=== PATIENT | male | born 1945 | race Caucasian/White ===

== ENCOUNTER → 2017-03-18 | Outpatient (CLI) | payer OTHER ==
[~2017-03-18] MED LIST: ASPEC81 PO; ATEN50TA8 PO; ATOR-22 PO; DYZ PO; OMEG10007 PO
[2017-03-18 17:32] LABS: BASO % 0.4 %; BASO ABS # 0.03 K/uL (0-0.2); COMPLETE YES; EOS % 1.9 %; HEMATOCRIT 46.1 % (42-52); IG% 0.1 %; LYMPH % 25.2 %; LYMPH ABS # 1.71 K/uL (1.2-3.4); MEAN CELL VOLUME 91.1 fL (80-100); MEAN CORPUSCULAR HEMOGLOBIN 31.6 pg (25-34); MEAN CORPUSCULAR HGB CONC 34.7 g/dl (32-36); MONO % 7.5 %; NEUT % 64.9 %; PLATELET COUNT 136 K/uL (130-400); RED BLOOD COUNT 5.06 M/uL (4.7-6.1); WHITE BLOOD COUNT 6.79 K/uL (4.8-10.8)
[2017-03-18 17:55] LABS: ALB/GLOB RATIO 1.2 (0.9-2); ALKALINE PHOSPHATASE 89 U/L (45-117); ALT/SGPT 26 U/L (12-78); AST/SGOT 16 U/L (15-37); BLOOD UREA NITROGEN 13 mg/dl (7-18); BUN/CREATININE RATIO 12.7 (10-20); CALCIUM 8.4 mg/dl (8.5-10.1); CARBON DIOXIDE 28 mmol/L (21-32); CHLORIDE 103 mmol/L (98-107); GLUCOSE 104 mg/dl (70-99); HDL CHOLESTEROL 46 mg/dl; POTASSIUM 3.3 mmol/L (3.5-5.1); SODIUM 139 mmol/L (136-145)
[2017-03-18 18:01] LABS: CHOLESTEROL 121 mg/dl (0-200); CHOLESTEROL/HDL RATIO 2.6; LDL CHOLESTEROL CALCULATED 59 mg/dl; PROSTATE SPECIFIC ANTIGEN 0.502 ng/ml (0.000-4.000); TRIGLYCERIDES 82 mg/dl (0-150); VERY LOW DENSITY LIPOPROT CALC 16 mg/dl
[2017-03-19 06:32] LABS: ESTIMATED AVERAGE GLUCOSE 114 mg/dl; HA1C FLAG Normal (Normal)
--- NOTE | 2017-03-24 11:35 | CODING QUERY MEDICAL NECESSITY ---
SUPPORTING DIAGNOSIS NEEDED A supporting diagnosis is required for the test/procedure performed on this patient in order for us to be reimbursed by the patient's insurance. Please provide a supporting diagnosis for the following test/procedure listed below next to the test name along with your signature. *If there is no additional diagnosis for this patient that would support the following test/procedure please document that below next to the test/procedure. Test(s)/Procedure(s) that require a supporting diagnosis: * PSA DIAGNOSIS: Provider Signature: Date: Thank you Jessy Ignacio [employer] Information Management Once completed, please kindly fax back to [phone] For questions please call [phone]
== END | disposition home or self-care (01) ==
LOC: C.LABBFT 11:32
PROVIDERS: ATTEND Internal Medicine
DX: R73.01 Impaired fasting glucose (principal); N40.0 Benign prostatic hyperplasia without lower urinary tract symptoms

== ENCOUNTER 2020-02-28 07:02 | Inpatient (IN) ==
--- NOTE | 2020-02-23 11:36 | Anesthesiology Consultation ---
Date of Service February 23, 2020 Assessment & Plan (1) Encounter for pre-operative examination: Labs (CBC, BMP, coags) to be done AM DOS per surgeon. Cardiology Clearance 02/16/20 = "Based on his functional status without limiting cardiopulmonary symptoms, preserved LV systolic function, and his Negative Stress Echocardiogram 12/19/2019 -- patient is an acceptable surgical risk to proceed with endovascular repair of AAA as planned. Patient was advised to take his usual dose of Atenolol 50 mg the morning of this procedure with sips of water. There is no need for further cardiac workup at this time." COVID Status: As of nurse assessment, 02/22 patient denies travel to endemic area, known exposure/sick contacts, symptoms, or testing for coronavirus. Chart Review Chart Review: Acceptable Risk for Surgery (pending pre op labs to be done AM DOS) and Patient NOT seen in Pre Admission Testing History Surgery Operation Date: 02/28/20 10:00 Proposed Procedures p Percutaneous Endovascular Aneurysm Repair - Nathan Saba MD Height/Weight Height: 5 ft 9 in Weight: 104.326 kg Allergies Allergy/AdvReac Type Severity Reaction Status Date / Time diflunisal Allergy Intermediate "CRAWL OUT Verified 02/21/20 09:23 OF SKIN" Medications Home Medications Medication Instructions Recorded Confirmed Last Taken omega-3 fatty acids 1,000 mg 1,000 mg PO QAM 06/29/19 02/23/20 Unknown capsule aspirin 81 mg PO QAM 12/12/19 02/23/20 Unknown atenolol 50 mg PO QAM 12/12/19 02/23/20 Unknown atorvastatin 30 mg PO QAM 12/12/19 02/23/20 Unknown triamterene-hydrochlorothiazid 1 cap PO QAM 12/12/19 02/23/20 Unknown Past Medical History Medical History Adenomatous polyp of colon (Inactive) Aortic aneurysm (Chronic) Chronic osteoarthritis (Chronic) Coronary atherosclerosis of [place] coronary vessel (Chronic) 100% occluded proximal RCA. Most recent echo 2013 showed EF 45-50%, dyskinetic inferior base, akinetic posterior wall, and mildly hypokinetic lateral wall. Medically managed by PCP on BB, statin and ASA. HTN (hypertension) (Chronic) Hyperlipidemia Spinal stenosis of lumbar region (Chronic) s/p decompression and fusion x 3 Past Family History Family History Mother Coronary heart disease Myocardial infarction Osteoarthritis Father Coronary heart disease Myocardial infarction Aunt Coronary heart disease Myocardial infarction Osteoarthritis Uncle Coronary heart disease Myocardial infarction Grandfather (Paternal) Myocardial infarction Other Colonic polyp Diabetes Heart disease Hypertension Stroke Denies family history of Rheumatoid arthritis Sudden SIDS (sudden syndrome) Ovarian cancer Prostate cancer Deep vein thrombosis Osteoporosis Dyslipidemia Cerebral aneurysm Alzheimer disease Bipolar disorder Clotting disorder Crohn's disease Dementia Depression Kidney disease Breast cancer Schizophrenia Congenital kidney disease Gestational diabetes Lung cancer COPD (chronic obstructive pulmonary disease) Colorectal cancer Pulmonary embolism Lung disease Cancer Ulcerative colitis Asthma Cystic kidney disease Past Surgical History Surgical History Fusion of spine CERVICAL AND LUMBAR FUSION (TOTAL 3 BACK SURGERIES) History of cardiac cath Indicated after + stress test in 2003. 100% occlusion of RCA with good collateral flow from L to R collaterals; 30% proximal and mid LAD stenosis, no significant disease in Cx. History of cataract surgery RT/LEFT History of colonoscopy History of tooth extraction Hx of tonsillectomy Social History Smoking Status: Former smoker tobacco type: cigarettes Do You Dip or Chew Tobacco: No Smoking End Date: 6 MONTHS AGO Hx Alcohol Use: Yes Alcohol type: beer, wine and hard liquor alcohol intake frequency: a few times a month Hx Substance Use: No substance use type: does not use Testing Stress Test Date: 12/19/19 Type: exercise Negative stress echocardiogram for ischemia by echo and EKG at 84% MPHR. Average exercise tolerance for age and gender, 90% of predicted, achieving 6.5 METS. The basal anterolateral, basal mid inferolateral basal inferior and basal inferoseptal mckeon remain akinetic with exercise consistent with scar. 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 No chest pain. No significant arrhythmia. Ventricular bigeminy and immediate recovery resolving around 2 minutes into recovery. Rest echo findings: EF 50%. Normal LV size. 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 Preserved LV systolic function. Biplane ejection fraction is 50 to 55%. Mild LVH. Other Testing Electrocardiogram Date: 12/14/19 Findings: + SB @ (47bpm with 1st degree AV block) NSICVD. Posibble inferior infarct (cited on or before 05/26/04). No significant change from EKG 02/13/16. Chest X-Ray Date: 12/14/19 Findings: + NAD
--- NOTE | 2020-02-27 13:50 | History & Physical Report ---
Date of Service February 27, 2020 Assessment & Plan (1) Aortic aneurysm: Patient for endovascular repair of his abdominal aortic aneurysm. I have discussed the risks options and benefits of the procedure with the patient. The patient understands the risks options and benefits and agrees to the procedure. Aortic location: abdominal aorta Presence of rupture: without rupture Qualified Code(s): I71.4 - Abdominal aortic aneurysm, without rupture History of Present Illness Chief Complaint: Abdominal aortic aneurysm Primary Care Provider: Glen Jones MD Mr. Ryan Nelson has a history of an abdominal aortic aneurysm, which we have been following with annual aortoiliac ultrasounds. As he reports to clinic today, he reports that he continues to be of good health. He denies any abdominal pain, significant back pain or symptoms of lower extremity claudication or cerebrovascular insufficiency. He was last seen in October of 2018. At that point in time, his aneurysm measured 4.7 cm in diameter. He reports that since his last visitation, he has no new medical or surgical diagnoses and no new medications. He had an aortoiliac ultrasound performed prior to his presentation to clinic today, which does demonstrate some growth in his aneurysm and is now measuring 4.9 x 5 cm and is being described as infrarenal and fusiform. 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 Allergies Allergy/AdvReac Type Severity Reaction Status Date / Time diflunisal Allergy Intermediate "CRAWL OUT Verified 02/21/20 09:23 OF SKIN" Home Medications Home Medications Medication Instructions Recorded Confirmed Type omega-3 fatty acids 1,000 mg 1,000 mg PO QAM 06/29/19 02/23/20 History capsule aspirin 81 mg PO QAM 12/12/19 02/23/20 History atenolol 50 mg PO QAM 12/12/19 02/23/20 History atorvastatin 30 mg PO QAM 12/12/19 02/23/20 History triamterene-hydrochlorothiazid 1 cap PO QAM 12/12/19 02/23/20 History Past Med/Surg History Medical History Adenomatous polyp of colon (Inactive) Aortic aneurysm (Chronic) Chronic osteoarthritis (Chronic) Coronary atherosclerosis of [place] coronary vessel (Chronic) 100% occluded proximal RCA. Most recent echo 2013 showed EF 45-50%, dyskinetic inferior base, akinetic posterior wall, and mildly hypokinetic lateral wall. Medically managed by PCP on BB, statin and ASA. HTN (hypertension) (Chronic) Hyperlipidemia Spinal stenosis of lumbar region (Chronic) s/p decompression and fusion x 3 Surgical History Fusion of spine CERVICAL AND LUMBAR FUSION (TOTAL 3 BACK SURGERIES) History of cardiac cath Indicated after + stress test in 2003. 100% occlusion of RCA with good collateral flow from L to R collaterals; 30% proximal and mid LAD stenosis, no significant disease in Cx. History of cataract surgery RT/LEFT History of colonoscopy History of tooth extraction Hx of tonsillectomy Family History Mother Coronary heart disease Myocardial infarction Osteoarthritis Father Coronary heart disease Myocardial infarction Aunt Coronary heart disease Myocardial infarction Osteoarthritis Uncle Coronary heart disease Myocardial infarction Grandfather (Paternal) Myocardial infarction Other Colonic polyp Diabetes Heart disease Hypertension Stroke Denies family history of Rheumatoid arthritis Sudden SIDS (sudden syndrome) Ovarian cancer Prostate cancer Deep vein thrombosis Osteoporosis Dyslipidemia Cerebral aneurysm Alzheimer disease Bipolar disorder Clotting disorder Crohn's disease Dementia Depression Kidney disease Breast cancer Schizophrenia Congenital kidney disease Gestational diabetes Lung cancer COPD (chronic obstructive pulmonary disease) Colorectal cancer Pulmonary embolism Lung disease Cancer Ulcerative colitis Asthma Cystic kidney disease Social History Preferred Language: [place] Communication Ability: Effective Visual Impairment: Partially Limited Hearing Ability: Normal Marketing Manager Health Communications Required: No Beliefs That Will Affect Care: None marital status: Current Living Situation: Spouse current occupational status: retired 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 Feels Safe at Home: Yes Safety Concerns: Feels Safe At This Time Smoking Status: Former smoker Tobacco Type: cigarettes ; Age Started Using Tobacco: 14 ; packs per day: 2 ; Do You Dip or Chew Tobacco: No ; Smoking End Date: 6 MONTHS AGO ; Second Hand Exposure: No ; Tobacco Cessation Education Requested by Patient: No Hx Alcohol Use: Yes Alcohol type: beer, wine and hard liquor Alcohol Intake Frequency: Rarely Hx Substance Use: No Childhood Exposure to Second-Hand Smoke: Yes caffeine: Yes Dental Care, Regularly: No Physical Activity Frequency: 3-4 Times per Week Seatbelt Use: always Sunscreen Use: No Review of Systems All systems reviewed & are unremarkable except as noted in HPI & below Physical Exam Physical Exam: On physical exam he is a well-appearing 74-year-old gentleman, who is in no acute distress. He is well-nourished. His vitals are as follows: He is saturating 97% on room air. His heart rate is 55 and has regular rate and rhythm by radial palpation. His blood pressure is 116/70 in his right upper extremity and 110/60 in his left upper extremity. He is able to ambulate to and from the examination room without any gait disturbance. His head is normocephalic and atraumatic. Extraocular eye movements are intact. His sclerae are anicteric. Mucous membranes are moist. He has no carotid bruits on auscultation. He has a heart that is of regular rate and rhythm without any murmurs, rubs or gallops appreciated on auscultation as well. His lungs are clear to auscultation bilaterally. His abdomen is soft, nontender, nondistended, without any obvious abdominal surgical scars. He has palpable 2+ DP and PT pulses bilaterally in his lower extremities without any open sores or wounds to the bilateral feet and no evidence of a distal arterial insufficiency. Neurologically, he is alert and oriented, without any focal deficits appreciated grossly on examination.
[~2020-02-28 07:02] MED LIST changes: -ASPEC81 PO; -ATEN50TA8 PO; -ATOR-22 PO; +CEFAZOLIN 2000MG 2,000 MG/15 ML SYR IV SCH; -DYZ PO; +LIDOCAINE HCL 1% 20 ML VIAL ONE; +MIDAZOLAM HCL 1 MG/ML 2ML VIAL ONE; -OMEG10007 PO; +SODIUM CHLORIDE 0.9% 1000ML 1,000 ML IV SCH; +fentaNYL citrate 100 MCG/2 ML VIAL ONE
[2020-02-28] MEDS ORDERED: LIDOCAINE 2% JELLY 5 ML TUBE ONE (07:09)
[2020-02-28] MEDS ORDERED: BUPIVACAINE 0.5 % 5 MG/1 ML MPF 30ML VIAL ONE (07:16)
[2020-02-28] MEDS ORDERED: LIDOCAINE/EPINEPHRINE 1% INJ 50 ML VIAL ONE (07:16)
--- NOTE | 2020-02-28 07:23 | History & Physical Bridge Note ---
Date of Service February 28, 2020 History & Physical Bridge Note I explained to the patient this is a nonemergency procedure that although medically indicated could be delayed to another date. There is a risk of becoming infected with the COVID-19 virus after having the surgical procedure done at this time. I explained that performing the procedure at this time may lead to a higher chance of complications and if they are infected with the COVID-19 virus without thus knowing it or if they become infected with COVID-19 during or after the procedure. COVID-19 infections can result in any of the following: Positive COVID test results, the need for quarantine/self-isolation, additional test interventions, hospitalization that may require medical therapy (including but not limited to intensive care unit treatment, the need for mechanical ventilation, short and long-term respiratory failure, management of blood clots and bleeding disorders, dialysis for renal failure, the need for additional surgery) and . If you may become COVID-19 positive, you may potentially transmit the virus to your personal contacts who may develop symptoms leading to the need for intensive medical therapy and possibly . I explained that knowledge about COVID-19 and is associated risk continues to evolve, and there may be additional risks not outlined above which are later discovered. The patient understands the above risks and agrees to go ahead with the planned procedure at this time.. I have examined the patient, reviewed the History & Physical and in the interval since the performance of the History & Physical I have noted the following changes of clinical significance: no changes noted
[2020-02-28 07:43] LABS: Basophils # (auto) 0.04 K/uL (0-0.2); Basophils % (auto) 0.6 %; Eosinophils # (auto) 0.19 K/uL (0-0.5); Eosinophils % (auto) 2.7 %; Hematocrit (blood only) 45.5 % (42-52); Hemoglobin 15.6 g/dL (14.0-18.0); Immature Granulocytes # (auto) 0.02 K/uL (0.00-0.02); Immature Granulocytes % (auto) 0.3 %; Lymphocytes # (auto) 1.71 K/uL (1.2-3.4); Lymphocytes % (auto) 24.6 %; Mean Corpuscular Hemoglobin 31.2 pg (25-34); Mean Platelet Volume 10.3 fL (7.4-10.4); Monocytes # (auto) 0.65 K/uL (0.11-0.59); Monocytes % (auto) 9.4 %; Neutrophils # (auto) 4.33 K/uL (1.4-6.5); Neutrophils % (auto) 62.4 %; Platelet Count 127 K/uL (130-400); RDW Coefficient of Variation 13.7 % (11.5-14.5); RDW Standard Deviation 45.2 fL (36.4-46.3); White Blood Count 6.94 K/uL (4.8-10.8)
[2020-02-28 07:56] LABS: Partial Thromboplastin Ratio 1.1; Partial Thromboplastin Time 30.9 Seconds (21.0-31.0); Prothrombin Time 10.9 Seconds (9.0-12.0)
[2020-02-28 07:58] LABS: Calcium 9.1 mg/dl (8.5-10.1); Creatinine Clr Calc Pharmacy 74.5 ml/min; Mean Corpuscular Hgb Conc 34.3 g/dL (32-36); Potassium 3.3 mmol/L (3.5-5.1)
[2020-02-28] MEDS ORDERED: ePHEDrine sulfate 50 MG/ML AMP ONE (09:06)
[2020-02-28] MEDS ORDERED: LARYING-O-JET KIT (LTA) ONE (09:06)
[2020-02-28] MEDS ORDERED: ONDANSETRON INJ 2 MG/ML 2 ML VIAL ONE (09:06)
[2020-02-28] MEDS ORDERED: HEPARIN SOD (PORCINE) 1000 UNIT/ML 10 ML VIAL ONE (09:06)
[2020-02-28] MEDS ORDERED: LABETALOL HCL IV 5 MG/ML 20ML IV ONE (09:06)
[2020-02-28] MEDS ORDERED: PROPOFOL IV EMULSION 10 MG/ML 20 ML VIAL IV ONE (09:06)
[2020-02-28] MEDS ORDERED: LIDOCAINE HCL 2% 2 ML VIAL/AMP(20MG/ML) INFIL ONE (09:06)
[2020-02-28] MEDS ORDERED: DEXAMETHASONE SOD INJ 4 MG/ML VIAL ONE (09:06)
[2020-02-28] MEDS ORDERED: NEOSTIGMINE METHYLSULFATE 5 MG/5 ML SYR ONE (09:06)
[2020-02-28] MEDS ORDERED: GLYCOPYRROLATE 0.2 MG/ML VIAL ONE (09:06)
[2020-02-28] MEDS ORDERED: ePHEDrine sulfate 50 MG/ML SYR ONE (09:06)
[2020-02-28] MEDS ORDERED: PHENYLEPHRINE HCL 10 MG/ML VIAL ONE (09:06)
[2020-02-28] MEDS ORDERED: CISATRACURIUM BESYLATE IV SOLN 2 MG/ML 10 ML VIAL IV ONE (09:06)
[2020-02-28] MEDS ORDERED: OXYCODONE/ACETAMINOPHEN 5mg/325mg TAB PO PRN (10:36)
[2020-02-28] MEDS ORDERED: VISIPAQUE IV PRN (10:36)
--- NOTE | 2020-02-28 10:43 | Post Operative Brief Note ---
Immediate Post Op Note v1 Date of Surgery February 28, 2020 Pre & Post Diagnosis Operation Date: 02/28/20 07:30 Pre-Op Diagnosis: Abdominal Aortic Aneurysm Post-Op Diagnosis: Abdominal Aortic Aneurysm I identified the patient and participated in the time-out.: Yes Procedure Operation Date: 02/28/20 07:30 Actual Procedures p Percutaneous Endovascular Aortic Aneurysm Repair, Bilateral Cannulation of the Aorta; Mechanical Closure of Bilateral Femoral Arteries(Bilateral) - Nathan Saba MD Surgeon Nathan Saba MD Architecture Professor Sylvia,PAC Estimated Blood Loss 220 Findings Consistent with Post-Op Diagnosis Drains Ponce Catheter Anesthesia Type General Complications none Disposition Accompanied Patient To Recovery: No Disposition: Recovery Room
--- NOTE | 2020-02-28 10:56 | Procedure Note ---
Angiogram Post Procedure Fluoroscopy Time (minutes): 12.9 Radiation (mGy): 997 Contrast: 190 Post Operative Report Pre & Post Diagnosis Operation Date: 02/28/20 07:30 Pre-Op Diagnosis: Abdominal Aortic Aneurysm Post-Op Diagnosis: Abdominal Aortic Aneurysm I identified the patient and participated in the time-out.: Yes Procedure Operation Date: 02/28/20 07:30 Actual Procedures p Percutaneous Endovascular Aortic Aneurysm Repair, Bilateral Cannulation of the Aorta; Mechanical Closure of Bilateral Femoral Arteries(Bilateral) - Nathan Saba MD Surgeon Nathan Saba MD Accounts Receivable Processor Sylvia,PAC Estimated Blood Loss 220 Findings Consistent with Post-Op Diagnosis Specimens none Anesthesia Type General Complications none Disposition Accompanied Patient To Recovery: No Disposition: Recovery Room Indications This is a 74-year-old male who had abdominal aortic aneurysm which is been followed for some time. It has grown to 5 cm in a short period of time. Repair was recommended. I have discussed the risks options and benefits of the procedure with the patient. The patient understands the risks options and benefits and agrees to the procedure. Description of Procedure The patient was taken to the operating placed supine position. After general anesthesia was accomplished 20-minute wait was undertaken. The patient was then prepped and draped in a sterile manner. A timeout was performed and the patient was appropriately identified. Percutaneous puncture was then done of the right common femoral artery and a 5 [place] sheath inserted. Hand-injection showed the puncture to be in the common femoral artery anteriorly. 2 pro glide devices were used to preclosed the right groin puncture. Once this was done a [place] sheath was inserted. Next the left common femoral artery was punctured and a 5 [place] sheath inserted. Hand-injection was performed on this side showing the puncture to be anterior in the common femoral artery. 2 Pro-glide devices were then used to preclosed the left side. Once they were placed an 8 [place] sheath was inserted. 035 glide wires were then passed up through the sheath into the suprarenal aorta. Using a Kumpe catheter these wires were then exchanged to a [place] on the right and a Beatty wire on the left. Once these were the wires were in place the 8 [place] sheath on the left side was exchanged to a 12 [place] dry seal. On the right side the puncture was dilated with a 16 [place] dilator followed by an 18 [place] dry seal. We then inserted a pigtail through the left groin suprarenal E. We inserted a 28 x 14-1/2 x 12 C3 graft to the right groin. An aortogram was performed. Renal arteries were identified. There was a small accessory renal of the right side which only supplied a very small portion of the kidney. The graft was then deployed just below the renal arteries. Another aortogram was done at this point. We decided we should move the graft just slightly to get it to slightly closer to the renal arteries. This was done without difficulty. The trunk of the graft was then reopened and another aortogram performed showing the top of the graft to be right with the renal arteries inferior border. [place] were then released. We then used an 035 Glidewire and Kumpe catheter to cannulate the gate. Once this was cannulated the pigtail was inserted. Hand-injection was performed marking the internal iliac on the left side. We decided at that time to use a 18 x 9-1/2 contralateral limb. The wire wire was reinserted and the pigtail was removed. We then placed the 12 [place] dilator back into the sheath and placed the sheath back up into the gait. The rest of the graft on the right side was deployed. The graft her leg slipped down into the aneurysm sac. This was due to the graft being pulled down with the sheath. At that point we finished the deployed the r ight limb and did a injection through the sheath on the right side. This showed the right limb to be in good position right above the right internal iliac artery. No endoleak was seen with a hand-injection from the groin. Decided to realign the graft completely. We then inserted another 28 x 14 and half by 14 C3 graft. This was brought up to the level of the renal arteries. A pigtail was reinserted to the left side. Aortography again marked renal arteries. The graft was then deployed just below the renal arteries. Another injection was performed which showed the graft to be at the inferior border of the renal arteries. The hooks were then deployed. We then inserted the guidewire through the pigtail and remove the pigtail. Using a angled Glidewire and the Kumpe catheter the contralateral gate was cannulated. Once this was cannulated again the pigtail was inserted. Hand-injection was performed marking the internal iliac artery on the left side. We then inserted the 12 [place] sheath and readvanced the sheath into the gait after a Marcelle wire was inserted through the pigtail and the pigtail was removed. The right was then deployed. We then inserted the 18 x 9 and half contralateral limb. It was in position it was deployed without difficulty. A Q 50 balloon was then inserted through the left side followed by the right side. All overlaps and attachment sites were b allooned with a Q50 balloon. Once this was done pigtail was inserted through the left groin. A completion aortogram showed no evidence of type I endoleak. There was good flow through the graft. There was a slight blush from the accessory renal on the right side. No further intervention was needed. We then reinserted a wire through the pigtail on the left and remove the pigtail. Left sheath was pulled and the pro-glide devices were securely tied. Jessica was used in the left groin and adequate hemostasis was noted. On the right side the 2 pro glides were tied. One actually snapped when it was being tied. We therefore inserted another Pro-glide over the wire and deployed it without difficulty. This 1 tied securely. Jessica was also used in this groin. Out of hemostasis was noted in both groins. Steri-Strips were applied to the puncture site as well as sterile dressings.The patient left the operation room in satisfactory condition and tolerated the procedure well. All needle and sponge counts were correct at the end of the procedure. Dorotyh Yan Pac assisted due to lack of resident availability and was necessary for positioning, draping, retraction, wound closure deep layers, subcutaneous tissue, and skin closure and was necessary for assisting with the case. I attest to the content of the Intraoperative Record and any orders documented therein. Any exceptions are noted below.
[2020-02-28] MEDS ORDERED: HYDROmorphone INJ 1 MG/ML SYRINGE IV PRN (11:04)
[2020-02-28] MEDS ORDERED: ATROPINE SULFATE 0.1 MG/ML 10ML SYR IV PRN (11:04)
[2020-02-28] MEDS ORDERED: NALOXONE HCL 0.4 MG/1 ML VIAL/CARP IV PRN (11:04)
[2020-02-28] MEDS ORDERED: PROMETHAZINE HCL 12.5 MG in SODIUM CHLORIDE 0.9% 50 ML IV PRN (11:04)
[2020-02-28] MEDS ORDERED: fentaNYL citrate 100 MCG/2 ML VIAL IV PRN (11:04)
[2020-02-28] MEDS ORDERED: ePHEDrine sulfate 50 MG/ML AMP IV PRN (11:04)
[2020-02-28] MEDS ORDERED: LABETALOL HCL IV 5 MG/ML 20ML IV PRN (11:04)
[2020-02-28] MEDS ORDERED: ONDANSETRON INJ 2 MG/ML 2 ML VIAL IV PRN (11:04)
[2020-02-28] MEDS ORDERED: FLUMAZENIL 0.1 MG/1 ML 10 ML VIAL IV PRN (11:04)
[2020-02-28 11:39] LABS: Hematocrit (blood only) 40.5 % (42-52)
--- NOTE | 2020-02-28 11:44 | Anesthesiology Progress Note ---
Date of Service February 28, 2020 Anesthesia Post Procedure Vital Signs Vital Signs: Temp Pulse Resp BP BP Pulse Ox 02/28/20 11:30 45 L 19 136/66 136/72 96 02/28/20 11:20 50 L 15 133/66 134/72 94 02/28/20 11:14 36.2 C L 48 L 16 134/72 97 Transfer of Care Handoff Completed per policy Notes Mental Status: alert / awake / arousable Patient Amnestic to Procedure: Yes Nausea / Vomiting: adequately controlled Pain: adequately controlled Airway Patency, RR, SpO2: stable & adequate BP & HR: stable & adequate Hydration State: stable & adequate Anesthetic Complications: no major complications apparent
[2020-02-28] MEDS: D5W AND 1/2NSS 1,000 ML IV SCH ×2 (12:35→20:37)
[2020-02-28] MEDS ORDERED: PNEUMOCOCCAL ADMINISTRATION CHARGE ONE (12:49)
[2020-02-28] MEDS ORDERED: PNEUMOCOCCAL POLYSACCHARIDES 25 MCG/0.5 ML VIAL/SYR IM ONE (12:49)
[2020-02-28] MEDS: CEFAZOLIN 2000MG 2,000 MG/15 ML SYR IV SCH ×2 (15:49→22:18)
[2020-02-29] MEDS: D5W AND 1/2NSS 1,000 ML IV SCH (05:11)
[2020-02-29 06:20] LABS: Basophils # (auto) 0.01 K/uL (0-0.2); Basophils % (auto) 0.1 %; Eosinophils # (auto) 0.01 K/uL (0-0.5); Eosinophils % (auto) 0.1 %; Hematocrit (blood only) 41.7 % (42-52); Hemoglobin 14.5 g/dL (14.0-18.0); Immature Granulocytes # (auto) 0.02 K/uL (0.00-0.02); Immature Granulocytes % (auto) 0.2 %; Lymphocytes # (auto) 0.99 K/uL (1.2-3.4); Mean Corpuscular Hemoglobin 31.6 pg (25-34); Mean Corpuscular Hgb Conc 34.8 g/dL (32-36); Mean Corpuscular Volume 90.8 fL (80-100); Mean Platelet Volume 10.6 fL (7.4-10.4); Monocytes # (auto) 0.78 K/uL (0.11-0.59); Monocytes % (auto) 7.1 %; Neutrophils # (auto) 9.15 K/uL (1.4-6.5); Neutrophils % (auto) 83.5 %; Platelet Count 109 K/uL (130-400); RDW Coefficient of Variation 13.2 % (11.5-14.5); RDW Standard Deviation 43.3 fL (36.4-46.3); Red Blood Count 4.59 M/uL (4.7-6.1); White Blood Count 10.96 K/uL (4.8-10.8)
[2020-02-29 06:49] LABS: BUN Creatinine Ratio 8.7 (10-20); Calcium 8.2 mg/dl (8.5-10.1); Creatinine Clr Calc Pharmacy 63.3 ml/min; Est GFR (African American) 65.6; Est GFR (Non-African American) 56.6; Potassium 3.4 mmol/L (3.5-5.1)
--- NOTE | 2020-02-29 08:02 | Surgery Progress Note ---
Date of Service February 29, 2020 Assessment & Plan (1) Aortic aneurysm: Patient POD#1 for a PEVAR of his AAA. Doing extremely well. Blood on bed not from either groin. D/c today after he voids Subjective Patient without complaint. Says there was a big blood spot on his bed this a.m. Physical Exam Constitutional: WD/WN, vitals as above Respiratory: normal respiratory effort; no respiratory distress Cardiovascular: Rate/Rhythm: regular rate and regular rhythm Gastrointestinal (Abdomen): Inspection/Auscultation: abdomen not distended Percussion/Palpation: abdomen soft; abdomen nontender and no guarding Skin: + incision (Puncture sites dry and clean both groins. No hematomas. ) Did not have any bleeding from groins. Dressing with only very small spot of old blood right over the puncture sites Results & Data Vital Signs (Past 12 Hours) Vital Signs Temp Pulse Resp BP Pulse Ox 02/29/20 03:00 36.3 C L 60 18 125/67 93 02/28/20 23:27 36.4 C L 56 L 18 130/73 94 (1) Aortic aneurysm Aortic location: abdominal aorta Presence of rupture: without rupture Jhon lified Code(s): I71.4 - Abdominal aortic aneurysm, without rupture
[2020-02-29] MEDS ORDERED: ATORVASTATIN 10 MG TAB PO SCH (09:00)
[2020-02-29] MEDS ORDERED: OMEGA-3 (PURIFIED FISH OIL) 1 GM CAP PO SCH (09:00)
[2020-02-29] MEDS ORDERED: TRIAMTERENE/HCTZ 37.5/25MG CAP PO SCH (09:00)
[2020-02-29] MEDS ORDERED: ASPIRIN 81 MG ECTAB PO SCH (09:00)
[2020-02-29] MEDS ORDERED: ATENOLOL 50 MG TABLET PO SCH (09:00)
--- NOTE | 2020-03-05 10:33 | Discharge Summary ---
Date of Service March 05, 2020 Admission HPI Per Admitting Provider Mr. Ryan Nelson has a history of an abdominal aortic aneurysm, which we have been following with annual aortoiliac ultrasounds. As he reports to clinic today, he reports that he continues to be of good health. He denies any abdominal pain, significant back pain or symptoms of lower extremity claudication or cerebrovascular insufficiency. He was last seen in October of 2018. At that point in time, his aneurysm measured 4.7 cm in diameter. He reports that since his last visitation, he has no new medical or surgical diagnoses and no new medications. He had an aortoiliac ultrasound performed prior to his presentation to clinic today, which does demonstrate some growth in his aneurysm and is now measuring 4.9 x 5 cm and is being described as infrarenal and fusiform. 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 Admission Exam Per Admitting Provider On physical exam he is a well-appearing 74-year-old gentleman, who is in no acute distress. He is well-nourished. His vitals are as follows: He is saturating 97% on room air. His heart rate is 55 and has regular rate and rhythm by radial palpation. His blood pressure is 116/70 in his right upper extremity and 110/60 in his left upper extremity. He is able to ambulate to and from the examination room without any gait disturbance. His head is normocephalic and atraumatic. Extraocular eye movements are intact. His sclerae are anicteric. Mucous membranes are moist. He has no carotid bruits on auscultation. He has a heart that is of regular rate and rhythm without any murmurs, rubs or gallops appreciated on auscultation as well. His lungs are clear to auscultation bilaterally. His abdomen is soft, nontender, nondistended , without any obvious abdominal surgical scars. He has palpable 2+ DP and PT pulses bilaterally in his lower extremities without any open sores or wounds to the bilateral feet and no evidence of a distal arterial insufficiency. Neurologically, he is alert and oriented, without any focal deficits appreciated grossly on examination. Principal Diagnosis 1. s/p PEVAR 2. AAA Discharge Exam Constitutional WD/WN, vitals as above Respiratory normal respiratory effort; no respiratory distress Cardiovascular Rate/Rhythm: regular rate and regular rhythm Gastrointestinal (Abdomen) Inspection/Auscultation: abdomen not distended Percussion/Palpation: abdomen soft; abdomen nontender and no guarding Skin + incision (Puncture sites dry and clean both groins. No hematomas. ) Discharge Data Allergies Allergy/AdvReac Type Severity Reaction Status Date / Time diflunisal Allergy Intermediate "CRAWL OUT Verified 02/28/20 07:47 OF SKIN" Procedures Performed Operation Date: 02/28/20 07:30 Actual Procedures p Percutaneous Endovascular Aortic Aneurysm Repair, Bilateral Cannulation of the Aorta; Mechanical Closure of Bilateral Femoral Arteries(Bilateral) - Nathan Saba MD Ordered Studies 02/28/20 07:12 EV AAA repair aorta only Routine Hospital Course (1) Aortic aneurysm: Patient POD#1 for a PEVAR of his AAA. Doing extremely well. No bleeding from either groin. D/c after he voids Total Time Total Time Spent Total Time Spent (In Minutes): 0 Discharge Plan Discharge Items Patient Disposition: Home - Self-Care Reason For Visit: Abdominal Aortic Aneurysm Discharge Diagnosis: Percutaneous endovascular repair of his abdominal aortic aneurysm Activity: Per Instructions section Lifting: Gradually increase as tolerated Bathing Comment: May shower Exercise/Sports: Rest today and Gradually increase as tolerated Weightbearing: Full weightbearing Non-emergency contact: Surgeon Call non-emergency contact if: you have any medication questions, your symptoms worsen, your pain is not controlled, your pain is worsening, your pain is unusual for you, your pain is concerning for you, your temperature is above 101.5, your wound has increased redness, your wound has increased drainage and your wound pain has increased Follow-up/Referrals: Glen Jones MD [Primary Care Provider] - Diet: Heart Healthy Addtl Attending Provider Instructions: SPECIAL CARE INSTRUCTIONS: Medications: * Continue to take your medications as directed. Incision/Puncture Site Care: * You will have an incision or puncture in each of your groins. Liquid glue will be used to seal your incisions/puncture site. This will lift off as the incisions/puncture sites heal. * If Liquid glue is not used, there will be small dressings covering your incisions. After you get home, you may remove the dressings and shower - allowing the warm soapy water to run over it. * Be sure to dry the sites well and keep them dry. * DO NOT SOAK IN A TUB/POOL/etc. UNTIL ALL SURGICAL SITES ARE HEALED. DO NOT REMOVE THE GLUE UNTIL THE INCISIONS HEAL. Restrictions: * Limit yourself to international sales manager activity for the first week. * You may walk and go up and down steps. * Avoid excessive bending or movement at the level of the incisions or punctures. Risks and Possible Complications: * Infection/Drainage/Bleeding - Drainage or bleeding from the incisions/puncture site should be minimal. If you have excessive bleeding or drainage, call our office ([phone]) right away. * Pain/Numbness - You may experience some mild pain or soreness at your incision sites. You may also have some numbness around the incisions or into the insides of your thighs. Bruising is normal and should resolve within 2 weeks. * Changes in Appetite or Bowel Habits - Mostly related to anesthesia and pain medication, some patients have reported decreased appetite and/or problems with constipation. These symptoms usually improve over a few weeks. Remembering to take an [id number] stool softener, as directed, will help you to avoid constipation. Call our office and seek emergent treatment if you develop: * Fever or chills * Have a temperature greater than 101 degrees F * Any redness or purulent drainage from your incisions or punctures * Severe abdominal, chest or back pain SKIN IRRITATION: * You may experience some redness and/or swelling in the area where radiation was administered. If any skin irritation occurs, please contact your family physician. You will be receiving a call from the Vascular Surgery Nurse after you are discharged. FOLLOW UP VISIT: It is important for you to keep your follow up appointments with your medical provider. Keep any scheduled doctor appointments. Call [phone] to schedule a follow up appointment if one not already scheduled. Pending Studies at Discharge: No Stand-Alone Forms: My [facility] Chlorine Genie, Opioid Pain Management, Smoking Cessation Medications and DC Order Prescriptions: New oxycodone-acetaminophen [Percocet] 5-325 mg Tablet 1 - 2 tab PO Q4H PRN (Reason: pain) Qty: 10 RF: 0 Continued omega-3 fatty acids 1,000 mg capsule 1,000 mg PO QAM RF: 0 aspirin 81 mg Tablet,Delayed Release (Dr/Ec) 81 mg PO QAM RF: 0 atorvastatin 20 mg tablet 30 mg PO QAM RF: 0 triamterene-hydrochlorothiazid [Dyazide] 37.5-25 mg capsule 1 cap PO QAM RF: 0 atenolol 50 mg tablet 50 mg PO QAM RF: 0 Discharge Orders: Discharge Order (Routine); Ordered 02/29/20 Ordered By: Nathan Altamirano/Miguel Patient Handouts: CAD Admission Data Admit Date/Time: 02/28/20 10:36 Attending Provider: Nathan Saba Admit Provider: Nathan Saba Primary Care Provider: Glen Jones Other Interventions: Discharge Summary Assessment (RN) Last Done: 02/29/20 12:12 DC Date/Time DO NOT enter until pt leaves facility: 02/29/20 12:57
== END 2020-02-29 12:57 | disposition home or self-care (01) | DRG 269 ==
LOC: ASU 07:02 → 3N 10:36

== ENCOUNTER 2020-05-13 12:46 | Inpatient (IN) ==
[2020-05-13 13:30] LABS: Basophils # (auto) 0.02 K/uL (0-0.2); Basophils % (auto) 0.3 %; Eosinophils # (auto) 0.06 K/uL (0-0.5); Eosinophils % (auto) 0.9 %; Hematocrit (blood only) 43.4 % (42-52); Hemoglobin 15.1 g/dL (14.0-18.0); Immature Granulocytes # (auto) 0.01 K/uL (0.00-0.02); Immature Granulocytes % (auto) 0.1 %; Lymphocytes # (auto) 1.27 K/uL (1.2-3.4); Lymphocytes % (auto) 18.7 %; Mean Corpuscular Hemoglobin 31.1 pg (25-34); Mean Corpuscular Hgb Conc 34.8 g/dL (32-36); Mean Corpuscular Volume 89.3 fL (80-100); Mean Platelet Volume 11.1 fL (7.4-10.4); Monocytes # (auto) 0.36 K/uL (0.11-0.59); Monocytes % (auto) 5.3 %; Neutrophils # (auto) 5.07 K/uL (1.4-6.5); Neutrophils % (auto) 74.7 %; Platelet Count 140 K/uL (130-400); RDW Coefficient of Variation 13.7 % (11.5-14.5); Red Blood Count 4.86 M/uL (4.7-6.1); White Blood Count 6.79 K/uL (4.8-10.8)
[2020-05-13 13:33] LABS: Partial Thromboplastin Ratio 1.1; Partial Thromboplastin Time 31.7 Seconds (21.0-31.0); Prothrombin Time 10.7 Seconds (9.0-12.0)
--- NOTE | 2020-05-13 13:34 | XRay Report ---
XR chest 1V portable CLINICAL HISTORY: Atypical chest pain COMPARISON STUDY: 12/14/2019 FINDINGS: The heart remains mildly enlarged. There is no failure. There is no focal pulmonary consoli dation. There are no pleural effusions.[ IMPRESSION: No active disease in the chest. ACT 112: Negative or not required by law. Electronically signed by: Gino Dunbar M.D. 05/13/2020 1:33 PM
--- NOTE | 2020-05-13 13:34 | Emergency Department Note ---
Impression & Plan Retrosternal chest pain ED Provider Note INFORMANT: [Patient] ED PROVIDER(S): Riccardo Chan MD CHIEF COMPLAINT: Chest pain PLAN: Disposition: Admitted Condition: [Good] MEDICAL DECISION MAKING: Patient presented due to chest pain. His ECG did not reveal any acute ST elevation or depression. Currently he was pain-free. He underwent a work-up which revealed him to have an elevated troponin measurement concerning for non- ST elevation ND. The patient underwent CT imaging and chest x-ray imaging for further evaluation. No evidence of aortic dissection or other acute intrathoracic problem was noted. The patient was given aspirin, Nitropaste, and started on IV heparin after consultation with internal medicine for admission. Triage Nursing notes reviewed and agree them. Vital Signs: reviewed and remarkable for [no significant abnormalities] Differential diagnosis: Cardiac ischemia, aortic dissection, pulmonary embolism, pneumothorax, pneumonia, pericarditis, myocarditis, esophageal rupture, GERD, cholecystitis, pancreatitis, musculoskeletal, as well as other pathologies. Diagnostics interpreted by me: ECG: Twelve-lead ECG reveals a sinus rhythm at 62 bpm. PVCs present. Nonspecific intraventricular conduction delay. Inferior Q waves present. Normal axis. No ST elevation. Cardiac Monitoring: Cardiac monitoring ordered by me: The patient was placed on continuous cardiac monitoring and observed. It revealed a normal sinus rhythm at 68 beats per minute without ectopy or evidence of dysrhythmia. Imaging studies: Chest x-ray. Findings: A chest x-ray was performed and revealed no pneumothorax, effusion, infiltrate, pulmonary edema, free air under the diaphragm, or wide mediastinum. Impression: No acute disease. CT imaging of the chest revealed no evidence of aortic pathology. I refer you to the EMR for further details. Consultation(s): Dr[facility] Amandeep [facility]. HPI: The patient is a 74 year old dee who presents to the Emergency Room with complaints of retrosternal chest pain. This started one week ago and is currently resolved. The patient also notes the following associated symptoms, pain radiating to the neck and both shoulders, left arm pain. The patient has tried tums relieving factors. Current pain is rated as 0/10. Pt denies LOC, headache, fevers, chills, diaphoresis, visual changes, breathing difficulties, nausea, vomiting, abdominal pain, back pain, melena, hematochezia, urinary symptoms, numbness, weakness, lymphadenopathy, rash, or other complaints. ROS: See above HPI for pertinent positives & negatives. A total of [10] systems reviewed and were otherwise negative. PAST MEDICAL HISTORY:[See Below] AAA PAST SURGICAL HISTORY:[See Below]Endovascular AAA repair 02/20 FAMILY HISTORY:[See Below] SOCIAL HISTORY:[See Below]Occasional ETOH, quit tobacco HOME MEDICATIONS:[See Below] ALLERGIES:[See Below] VITALS:[See Below] PHYSICAL EXAMINATION: GENERAL: Awake, alert, well-appearing, in no distress HENT: Normocephalic, atraumatic. Oropharynx unremarkable. EYES: Normal conjunctiva. Sclera non-icteric. NECK: Inspection normal. Non-tender. Supple. No nuchal rigidity. FROM. No masses. RESPIRATORY: Clear to auscultation. No wheezes. No rales. Normal respiratory effort. CARDIAC: Normal rate. Normal rhythm. No murmurs. No rubs. Extremities warm and well perfused. Pulses equal. No JVD. GI: Soft, non-distended. No tenderness to palpation. No rebound or guarding. No masses. RECTAL: Deferred. MUSCULOSKELETAL: Atraumatic. Chest examination reveals no tenderness. The back is symmetrical on inspection without obvious abnormality. There is no CVA tenderness to palpation. No joint edema. LOWER EXTREMITIES: Calves are equal size bilaterally and non-tender. No edema. No discoloration. NEURO: Normal sensorium. No sensory or motor deficits noted. SKIN: No rash or jaundice noted. ED COURSE: Critical care: I have personally spent greater than 40 minutes of critical care time in the direct management of this patient. This includes bedside care, interpretation of diagnostic studies, and testing, discussion with consultants, patient, and family members, and other required patient management activities. These minutes are in excess of all separately billable procedures. Riccardo Chan MD Past Med/Surg History Medical History (Updated 05/13/20 @ 17:46 by Amandeep Juan MD) Adenomatous polyp of colon (Inactive) Aortic aneurysm Chronic osteoarthritis (Chronic) Coronary atherosclerosis of [place] coronary vessel (Chronic) 100% occluded proximal RCA. Most recent echo 2013 showed EF 45-50%, dyskinetic inferior base, akinetic posterior wall, and mildly hypokinetic lateral wall. Medically managed by PCP on BB, statin and ASA. HTN (hypertension) (Chronic) Hyperlipidemia Rotator cuff arthropathy of both shoulders (Acute) Spinal stenosis of lumbar region (Chronic) s/p decompression and fusion x 3 Surgical History (Updated 05/13/20 @ 10:50 by Mikki Carrillo MD) Fusion of spine CERVICAL AND LUMBAR FUSION (TOTAL 3 BACK SURGERIES) H/O lateral meniscus repair of right knee (Acute) History of AAA (abdominal aortic aneurysm) repair History of cardiac cath Indicated after + stress test in 2003. 100% occlusion of RCA with good collateral flow from L to R collaterals; 30% proximal and mid LAD stenosis, no significant disease in Cx. 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 Feels Safe at Home: Yes Safety Concerns: Feels Safe At This Time Childhood Exposure to Second-Hand Smoke: Yes caffeine: Yes Dental Care, Regularly: No Physical Activity Frequency: 3-4 Times per Week Seatbelt Use: always Sunscreen Use: No Allergies Allergies Allergy/AdvReac Type Severity Reaction Status Date / Time diflunisal Allergy Intermediate "CRAWL OUT Verified 05/13/20 14:39 OF SKIN" Home Meds Home Medications Medication Instructions Recorded Confirmed omega-3 fatty acids 1,000 mg 1,000 mg PO QAM 06/29/19 05/13/20 capsule aspirin 81 mg PO QAM 12/12/19 05/13/20 atenolol 50 mg PO QAM 12/12/19 05/13/20 atorvastatin 30 mg PO QAM 12/12/19 05/13/20 triamterene-hydrochlorothiazid 1 cap PO QAM 12/12/19 05/13/20 [Dyazide] Previous Rx's Medication Instructions Recorded oxycodone-acetaminophen [Percocet] 1 - 2 tab PO Q4H PRN #10 tab 02/29/20 nitroglycerin 0.4 mg sublingual 0.4 mg SL Q5M PRN #25 tab 05/13/20 tablet Results & Data (ED) Vital Signs Vital Signs - 24 hr 05/13/20 12:51 05/13/20 13:05 05/13/20 13:16 Temperature 36.6 C Temperature Source Oral Pulse Rate 65 64 65 Pulse Rate from SpO2 Sensor 60 Pulse Rhythm Regular Respiratory Rate 16 15 16 Respiratory Depth Normal Blood Pressure 128/67 133/70 Blood Pressure Mean 87 90 Pulse Oximetry 96 95 96 Oxygen Delivery Method Room Air Room Air Room Air Sepsis Recent Fever Within 48 Hours No Sepsis New/Unexplained Change in Mental Status No Sepsis Action Taken by Nursing No Action Required 05/13/20 13:30 05/13/20 14:00 05/13/20 14:30 Temperature Temperature Source Pulse Rate 63 61 60 Pulse Rate from SpO2 Sensor 64 53 L 56 L Pulse Rhythm Respiratory Rate 12 17 19 Respiratory Depth Blood Pressure 126/72 114/59 L 106/62 Blood Pressure Mean 81 80 68 Pulse Oximetry 95 93 94 Oxygen Delivery Method Sepsis Recent Fever Within 48 Hours Sepsis New/Unexplained Change in Mental Status Sepsis Action Taken by Nursing 05/13/20 15:30 05/13/20 16:00 05/13/20 16:01 Temperature Temperature Source Pulse Rate 53 L 43 L 52 L Pulse Rate from SpO2 Sensor 60 53 L 59 L Pulse Rhythm Respiratory Rate 15 9 L 15 Respiratory Depth Blood Pressure 141/87 H 159/91 H Blood Pressure Mean 91 107 Pulse Oximetry 96 96 97 Oxygen Delivery Method Sepsis Recent Fever Within 48 Hours Sepsis New/Unexplained Change in Mental Status Sepsis Action Taken by Nursing Laboratory Data Result diagrams: 05/13/20 13:00 05/13/20 13:00 Lab Results 05/13/20 05/13/20 05/13/20 Range/Units 13:00 13:00 13:00 WBC 6.79 (4.8-10.8) K/uL RBC 4.86 (4.7-6.1) M/uL Hgb 15.1 (14.0-18.0) g/dL Hct 43.4 (42-52) % MCV 89.3 (80-100) fL MCH 31.1 (25-34) pg MCHC 34.8 (32-36) g/dL RDW Std Deviation 45.0 (36.4-46.3) fL RDW Coeff of Malik 13.7 (11.5-14.5) % Plt Count 140 (130-400) K/uL MPV 11.1 H (7.4-10.4) fL Immature Gran % (Auto) 0.1 % Neut % (Auto) 74.7 % Lymph % (Auto) 18.7 % Humphreys % (Auto) 5.3 % Eos % (Auto) 0.9 % Baso % (Auto) 0.3 % Neut # (Auto) 5.07 (1.4-6.5) K/uL Lymph # (Auto) 1.27 (1.2-3.4) K/uL Humphreys # (Auto) 0.36 (0.11-0.59) K/uL Eos # (Auto) 0.06 (0-0.5) K/uL Baso # (Auto) 0.02 (0-0.2) K/uL Immature Gran # (Auto) 0.01 (0.00-0.02) K/uL PT 10.7 (9.0-12.0) Seconds INR 1.0 (0.9-1.1) APTT 31.7 H (21.0-31.0) Seconds PTT Ratio 1.1 Sodium 135 L (136-145) mmol/L Potassium 3.1 L (3.5-5.1) mmol/L Chloride 100 (98-107) mmol/L Carbon Dioxide 28 (21-32) mmol/L Anion Gap 8.0 (3-11) BUN 14 (7-18) mg/dl Creatinine 1.37 (0.6-1.4) mg/dl Est Cr Clr Drug Dosing 56.0 ml/min Est GFR ( Amer) 59.3 Est GFR (Non-Af Amer) 51.2 BUN/Creatinine Ratio 9.9 L (10-20) Glucose 156 H (70-99) mg/dl Calcium 9.1 (8.5-10.1) mg/dl Total Bilirubin 1.2 H (0.2-1) mg/dl AST 20 (15-37) U/L ALT 22 (12-78) U/L Alkaline Phosphatase 86 (45-117) U/L Troponin I 2.080 H* (0-0.045) ng/ml Total Protein 6.9 (6.4-8.2) gm/dl Albumin 3.5 (3.4-5.0) gm/dl Globulin 3.4 (2.5-4.0) gm/dl Albumin/Globulin Ratio 1.0 (0.9-2) Lipase 58 L (73-393) U/L Administered Medications Heparin Sodium/Dextrose (Heparin Sodium/Dextrose) 25,000 units in 500 mls @ 29 mls/hr IV .[id number] [facility]; Protocol Stop: 06/12/20 15:59 Last Admin: 05/13/20 16:48 Dose: 1,450 units/hr, 29 mls/hr Documented by: [id number] Cosigned by: [id number] Potassium Chloride (Klor-Con M20) 20 meq PO BID [facility] Stop: 05/14/20 09:01 Last Admin: 05/13/20 20:19 Dose: 20 meq Documented by: [id number] Discontinued Medications Aspirin (Aspirin) 243 mg PO NOW STA Stop: 05/13/20 15:55 Last Admin: 05/13/20 16:31 Dose: 243 mg Documented by: [id number] Heparin Sodium (Porcine) (Heparin Iv Bolus) 5,000 units IV NOW STA Stop: 05/13/20 16:21 Last Admin: 05/13/20 16:48 Dose: 5,000 units Documented by: [id number] Cosigned by: [id number] Heparin Sodium/Dextrose () 1 ea N/A NOW STA; Protocol Stop: 05/13/20 16:00 Last Admin: 05/13/20 17:01 Dose: Not Given Documented by: [id number] Potassium Chloride (K Konstantin / Wtr) 10 meq in 100 mls @ 100 mls/hr IV ONE ONE Stop: 05/13/20 15:17 Last Infusion: 05/13/20 16:29 Dose: 0 mls/hr Documented by: [id number] Admin: 05/13/20 15:17 Dose: 75 mls/hr Documented by: [id number] Ioversol (Optiray 320 125ml) 119 ml IV ONCE ONE Stop: 05/13/20 15:07 Last Admin: 05/13/20 15:07 Dose: 119 ml Documented by: [id number] Nitroglycerin (Nitro-Bid 2%) 0.5 inch EXT NOW STA Stop: 05/13/20 15:55 Last Admin: 05/13/20 17:01 Dose: Not Given Documented by: [id number] Discharge Plan Visit Data *Final* Discharge Date/Time: 05/13/20 19:09 Chief Complaint: Referred by Doctor Stated Complaint: SENT BY DOCTOR ED Provider: Riccardo Chan Discharge Problem: Retrosternal chest pain Patient Disposition: Admitted As Inpatient Discharge Instructions Interventions: ED Discharge Assessment Last Done: 05/13/20 19:09
[2020-05-13 13:47] LABS: Albumin Level 3.5 gm/dl (3.4-5.0); BUN Creatinine Ratio 9.9 (10-20); Calcium 9.1 mg/dl (8.5-10.1); Est GFR (African American) 59.3; Est GFR (Non-African American) 51.2; Potassium 3.1 mmol/L (3.5-5.1)
[2020-05-13 14:10] LABS: Bilirubin,Total 1.2 mg/dl (0.2-1); Globulin 3.4 gm/dl (2.5-4.0); Total Protein 6.9 gm/dl (6.4-8.2); Troponin I 2.08 ng/ml (0-0.045)
[2020-05-13] MEDS ORDERED: POTASSIUM CHLORIDE / WTR 10 MEQ/100 ML PLCT IV ONE (14:18)
[2020-05-13] MEDS ORDERED: OPTIRAY 320 125ml IV ONE (15:06)
--- NOTE | 2020-05-13 15:18 | CT Scan Report ---
CT ANGIOGRAPHY THE CHEST WITHOUT AND WITH CONTRAST CLINICAL HISTORY: Midsternal chest pain radiating to the shoulder blades. History of AAA repair. COMPARISON STUDY: Chest x-ray dated 05/13/2020 TECHNIQUE: Unenhanced images were obtained through the thorax. CT angiography of the chest was then p erformed during the IV administration of 119 mL of Optiray-320, CT of the thorax was performed from t he thoracic inlet to the lung bases. Images are reviewed in the axial, sagittal, and coronal planes. MIP images were acquired. IV contrast was administered without complication. A dose lowering techniq ue was utilized adhering to the principles of ALARA. CT DOSE: 1492.54 mGy.cm FINDINGS: Thyroid: Imaged portions of the thyroid gland are normal in appearance. Thoracic aorta: Noncontrast images reveal no evidence of acute thoracic hematoma. Postcontrast images reveal no evidence of thoracic aortic aneurysmal dilatation. There are no intimal flaps to indicate thoracic aortic dissection. There are mild atheromatous changes present. Pulmonary vasculature: The pulmonary trunk is normal in caliber. There are no central filling defects identified to suggest pulmonary embolus. Note that this examination was not protocoled for the evalu ation of pulmonary emboli. HEART: There are coronary artery calcifications. There is no pericardial effusion. Lungs and pleural spaces: There is no pneumothorax. There are no pleural effusions. There is no focal pulmonary consolidation. There are subpleural blebs most pronounced in the lung apices. There is als o a bleb visualized within the periphery of the right upper lobe. Mediastinum: Mediastinal lymph nodes are the upper limits of normal in size. Lizzy: There is no evidence of pathologic hilar lymphadenopathy Axilla: There is no evidence of pathologic axillary lymphadenopathy Upper abdomen: There is mild left adrenal gland thickening. There is a 1 cm hyperdense left renal cy st. Skeletal structures: There are no lytic or blastic osseous lesions. IMPRESSION: 1. No acute intrathoracic findings 2. No evidence of acute pulmonary embolism 3. No evidence of thoracic aortic aneurysm or dissection 4. No evidence of focal pulmonary consolidation ACT 112: Negative or not required by law. Electronically signed by: Gino Dunbar M.D. 05/13/2020 3:17 PM
[2020-05-13] MEDS ORDERED: ASPIRIN CHEW 324 MG PO STA (15:54)
[2020-05-13] MEDS ORDERED: NITROGLYCERIN 2% OINTMENT 30GM TUBE EXT STA (15:54)
--- NOTE | 2020-05-13 16:08 | History & Physical Report ---
Date of Service May 13, 2020 Assessment & Plan (1) CAD (coronary artery disease): atypical chest pain but elevated troponin, he has non specific ECG changes, was loaded with aspirin in ER, ordered nitro paste but not started, will ask cardiology to weigh in as did have recent negative stress test in office. continues on aspirin, atenolol( may consider changes to metorolol or coreg) and statin, Echo ordered and will keep npo after mn incase additional testing will be done there is a description of positional nature of pain, worse in recumbent position, will check esr in am and lyme his nocturnal sx make GI origin of his pain more likely but his troponin testing being elevated warrents further evaluaiton (2) Hyperlipidemia: continue atorvastatin pt states 40 mg dose was too high for him in the past (3) Benign prostatic hyperplasia: Pt has frequent nocturnal urination and dribbling urine, does not want medicine at this point will need urology eval as outpt (4) HTN (hypertension): atenolol, will hold diuretic at this point (5) Lumbar stenosis with neurogenic claudication: pt only using tylenol as needed (6) Hypokalemia: replete orally and check magnesium (7) DVT prophylaxis: heparin Gtt History of Present Illness Primary Care Provider: Glen Jones MD 74M who presents to the Emergency Room with complaints of retrosternal chest pain that has been occurring over the last week. 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 This recurred on wednesday night again at rest and the pt called his Pcp on wednesday and was referred to the ER , the symptoms are currently resolved. The patient again denies associated symptoms. The patient had tried tums for the initial event without relief. Current pain is rated as 0/10. Pt denies LOC, headache, fevers, chills, diaphoresis, visual changes, breathing difficulties, nausea, vomiting, abdominal pain, back pain, melena, hematochezia, urinary symptoms, numbness, weakness, lymphadenopathy, rash, or other complaints. This pt has minor ECG changes, and an elevated troponin on intake of 2, he is heparinized in the ER This pt had a negative stress test 12/[address] [place] office pre operatively for his endovascular repair of a AAA, but he states that he has seen Bryantrixie Fan in the past and wants to see him again this stay. Allergies Allergy/AdvReac Type Severity Reaction Status Date / Time diflunisal Allergy Intermediate "CRAWL OUT Verified 05/13/20 14:39 OF SKIN" Home Medications Home Medications Medication Instructions Recorded Confirmed Type omega-3 fatty acids 1,000 mg 1,000 mg PO QAM 06/29/19 05/13/20 History capsule aspirin 81 mg PO QAM 12/12/19 05/13/20 History atenolol 50 mg PO QAM 12/12/19 05/13/20 History atorvastatin 30 mg PO QAM 12/12/19 05/13/20 History triamterene-hydrochlorothiazid 1 cap PO QAM 12/12/19 05/13/20 History [Dyazide] oxycodone-acetaminophen [Percocet] 1 - 2 tab PO Q4H PRN #10 tab 02/29/20 05/13/20 Rx nitroglycerin 0.4 mg sublingual 0.4 mg SL Q5M PRN #25 tab 05/13/20 05/13/20 Rx tablet Past Med/Surg History Medical History (Updated 05/13/20 @ 17:46 by Amandeep Juan MD) Adenomatous polyp of colon (Inactive) Aortic aneurysm Chronic osteoarthritis (Chronic) Coronary atherosclerosis of [place] coronary vessel (Chronic) 100% occluded proximal RCA. Most recent echo 2013 showed EF 45-50%, dyskinetic inferior base, akinetic posterior wall, and mildly hypokinetic lateral wall. Medically managed by PCP on BB, statin and ASA. HTN (hypertension) (Chronic) Hyperlipidemia Rotator cuff arthropathy of both shoulders (Acute) Spinal stenosis of lumbar region (Chronic) s/p decompression and fusion x 3 Surgical History (Updated 05/13/20 @ 10:50 by Mikki Carrillo MD) Fusion of spine CERVICAL AND LUMBAR FUSION (TOTAL 3 BACK SURGERIES) H/O lateral meniscus repair of right knee (Acute) History of AAA (abdominal aortic aneurysm) repair History of cardiac cath Indicated after + stress test in 2003. 100% occlusion of RCA with good collateral flow from L to R collaterals; 30% proximal and mid LAD stenosis, no significant disease in Cx. History of cataract surgery RT/LEFT History of colonoscopy History of tooth extraction Hx of tonsillectomy Social History Smoking Status: Former smoker Age Started Using Tobacco: 14; packs per day: 2; Second Hand Exposure: No; Hx Alcohol Use: Yes Alcohol type: beer, wine and hard liquor Hx Substance Use: No Preferred Language: Malagasy Communication Ability: Effective Visual Impairment: Partially Limited Hearing Ability: Normal Visiting Teacher Required: No Beliefs That Will Affect Care: None marital status: Current Living Situation: Spouse current occupational status: retired 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 Feels Safe at Home: Yes Childhood Exposure to Second-Hand Smoke: Yes caffeine: Yes Dental Care, Regularly: No Physical Activity Frequency: 3-4 Times per Week Seatbelt Use: always Sunscreen Use: No Results & Data Results & Data ([facility]) Vital Signs (Past 12 Hours) Vital Signs Temp Pulse Resp BP Pulse Ox 05/13/20 15:30 53 L 15 141/87 H 96 05/13/20 14:30 60 19 106/62 94 05/13/20 14:00 61 17 114/59 L 93 05/13/20 13:30 63 12 126/72 95 05/13/20 13:16 65 16 96 05/13/20 13:05 64 15 133/70 95 05/13/20 12:51 97.9 F 65 16 128/67 96 cxr 05/13/20 No active changes CTA chest 05/13/20 No PE no dissection no active changes ECG no acute changes possibe non specific St T changes PG Care Time/CCT Total # of Minutes Spent Total Time Spent with Patient: Total time spent is greater than 50% in coordination of care (as documented) at patient's floor/unit and/or counseling patient: Coding Level of Care Code 10475 Initial Inpt Care Lvl 3 Diagnoses CAD (coronary artery disease) I25.10 Hyperlipidemia E78.00; E78.0 Hyperlipidemia type: pure hypercholesterolemia Benign prostatic hyperplasia N40.0 HTN (hypertension) I10 Hypertension type: essential hypertension Lumbar stenosis with neurogenic claudication M48.062 Hypokalemia E87.6 DVT prophylaxis Z29.9 (1) Hyperlipidemia Hyperlipidemia type: pure hypercholesterolemia Qualified Code(s): E78.00 - Pure hypercholesterolemia, unspecified; E78.0 - Pure hypercholesterolemia (2) HTN (hypertension) Hypertension type: essential hypertension Qualified Code(s): I10 - Essential (primary) hypertension
[2020-05-13] MEDS ORDERED: Heparin BOLUS **ED Use Only IV STA (16:20)
[2020-05-13] MEDS: HEPARIN SODIUM/DEXTROSE 25,000 UNITS/500 ML BAG IV SCH (16:48)
[2020-05-13] MEDS ORDERED: NITROGLYCERIN SL 0.4 MG/TAB TAB SL PRN (19:23)
[2020-05-13] MEDS ORDERED: ALUMINUM/MAGNESIUM SUSP 30 ML UDC PO PRN (19:23)
[2020-05-13] MEDS ORDERED: ACETAMINOPHEN 325 MG TAB PO PRN (19:23)
[2020-05-13] MEDS ORDERED: HEPARIN SODIUM/DEXTROSE 25,000 UNITS/500 ML BAG IV SCH (19:23)
[2020-05-13] MEDS ORDERED: OXYCODONE/ACETAMINOPHEN 5mg/325mg TAB PO PRN (19:23)
[2020-05-13] MEDS ORDERED: ONDANSETRON INJ 2 MG/ML 2 ML VIAL IV PRN (19:23)
[2020-05-13] MEDS ORDERED: MoRPHine SULFATE 2 MG/ML CARP IV PRN (19:23)
[2020-05-13] MEDS: POTASSIUM CHLORIDE 20 MEQ TABCR PO SCH ×2 (20:19→21:45)
[2020-05-13 20:50] LABS: Magnesium 2.1 mg/dl (1.8-2.4); Troponin I 2.37 ng/ml (0-0.045)
[2020-05-14 02:17] LABS: Partial Thromboplastin Ratio 3.2
[2020-05-14 02:25] LABS: Partial Thromboplastin Time 90.5 Seconds (21.0-31.0)
[2020-05-14 03:27] LABS: BUN Creatinine Ratio 10.7 (10-20); Calcium 8.1 mg/dl (8.5-10.1); Est GFR (African American) 64.4; Est GFR (Non-African American) 55.5; Magnesium 2.1 mg/dl (1.8-2.4); Potassium 3.4 mmol/L (3.5-5.1)
[2020-05-14 03:44] LABS: Troponin I 2.74 ng/ml (0-0.045)
[2020-05-14 04:23] LABS: Lyme Ab IgG w/WB Rflx Negative (Negative); Lyme Ab IgM w/WB Rflx Negative (Negative)
--- NOTE | 2020-05-14 06:01 | Electrocardiogram Report ---
Test Reason : Blood Pressure : / mmHG Vent. Rate : 062 BPM Atrial Rate : 062 BPM P-R Int : 200 ms QRS Dur : 128 ms QT Int : 446 ms P-R-T Axes : 052 032 -77 degrees QTc Int : 452 ms Sinus rhythm with occasional Premature ventricular complexes Non-specific intra-ventricular conduction block Inferior infarct (cited on or before 26-MAY-2004) Nonspecific ST and T wave abnormality Abnormal ECG When compared with ECG of 14-DEC-2019 09:25, Premature ventricular complexes are now Present Nonspecific ST and T wave abnormality is now Present Confirmed by Gildardo Bhakta ([id number]) on 05/14/2020 6:01:44 AM Referred By: Glen Jones Confirmed By:Gildardo Bhakta
--- NOTE | 2020-05-14 08:02 | Cardiology Consultation ---
Date of Consultation May 14, 2020 Assessment & Plan (1) Non-ST elevation (NSTEMI) myocardial infarction: (2) HTN (hypertension): (3) Hyperlipidemia: (4) CAD (coronary artery disease): ASSESSMENT/PLAN: 1. NSTEMI: Presented with rest angina and elevated troponins. Echocardiogram was being done at the bedside during our visit and has not yet been formally reviewed. Currently chest pain-free. Given history of CAD and presenting rest angina with elevated troponins, recommend cardiac catheterization. Risk benefits were discussed with him in detail. He was made aware that CT surgery is not available at this facility. He is agreeable to proceed with cardiac catheterization, and PCI, if deemed appropriate. Continue aspirin 81 mg. Continue heparin drip. Continue beta-mirian and statin therapy. 2. CAD: Previously documented occluded RCA with [id number] collaterals and otherwise mild nonobstructive CAD within the LAD and circumflex systems, approximately 16 years ago. Plan as above. 3. Hypertension: Blood pressure has been normotensive to hypertensive. Recommend low-dose SHANDRA inhibitor if no contraindications. Continue beta- mirian. He is well beta blocked. 4. Dyslipidemia: LDL has been well controlled when last evaluated nearly 1 year ago. Consider high intensity statin therapy. He has not tried higher doses than 30 mg Lipitor in the past according to his recollection. 5. Disposition: Cardiology will continue to follow. Cardiac catheterization recommended as above. Patient care communicated with Dr. Juan of the primary hospitalist service. Highly complex medical issues. Thank you for allowing me to participate in the care of your patient. Please call for any other questions or concerns. Sincerely, Florentin Bhakta M.D. History of Present Illness Reason for Consultation: NSTEMI Requesting Physician: Dr. Juan Attending Physician: Amandeep Juan MD History of Present Illness Mr. Nelson is a pleasant 74-year-old gentleman with a history significant for CAD, hypertension, dyslipidemia, and AAA s/p endovascular repair by Dr. Saba. In 2003 as part of a preoperative evaluation, he underwent stress testing which was abnormal, prompting cardiac catheterization at [facility]. Cardiac catheterization at that time demonstrated occluded RCA with collaterals, as well as 30% LAD and 30% circumflex stenosis. He did not have any angina prior to the procedure or his occluded RCA. 1 week ago, he noted some chest discomfort in bed on Wednesday, Wednesday, and then on Wednesday morning. He then felt well throughout the week until 2 days ago when he once again had chest discomfort at night and once again yesterday morning at 2 AM. Symptoms can last as long as an hour or more. When he presented to the hospital, he was found to have elevated troponins. He has been chest pain-free here and has been on a heparin drip. The chest discomfort was described as "God awful" in the substernal area. It radiated to shoulders and intrascapular area. There was no associated diaphoresis or shortness of breath. He has not noted any recent exertional symptoms. He does not exercise. He is currently chest pain-free and has no shortness of breath. He denies bleeding such as melena, hematochezia, hematuria. He denies palpitations, syncope, near syncope, edema, orthopnea, fevers, chills, nausea, vomiting, or any recent illness. Review of systems: As above. Review of systems otherwise negative/unremarkable. Family history: Strong family history of CAD on both maternal and paternal side. Social history: He smoked consistently in the past but quit several years ago, smoking only on rare occasions. He consumes approximately a 12 pack of beer on weekends, but does not drink on a consistent basis. He denies drugs. He lives at home with his . He has 4 daughters and 1 son. He is a retired industrial electrician. He was unaccompanied during our visit earlier this morning at the bedside. Allergies Allergy/AdvReac Type Severity Reaction Status Date / Time diflunisal Allergy Intermediate "CRAWL OUT Verified 05/13/20 14:39 OF SKIN" Home Medications Home Medications Medication Instructions Recorded Confirmed Type omega-3 fatty acids 1,000 mg 1,000 mg PO QAM 06/29/19 05/13/20 History capsule aspirin 81 mg PO QAM 12/12/19 05/13/20 History atenolol 50 mg PO QAM 12/12/19 05/13/20 History atorvastatin 30 mg PO QAM 12/12/19 05/13/20 History triamterene-hydrochlorothiazid 1 cap PO QAM 12/12/19 05/13/20 History [Dyazide] oxycodone-acetaminophen [Percocet] 1 - 2 tab PO Q4H PRN #10 tab 02/29/20 05/13/20 Rx nitroglycerin 0.4 mg sublingual 0.4 mg SL Q5M PRN #25 tab 05/13/20 05/13/20 Rx tablet Patient History Medical History (Updated 05/14/20 @ 09:25 by Gildardo Bhakta MD) Adenomatous polyp of colon (Inactive) Aortic aneurysm Chronic osteoarthritis (Chronic) Coronary atherosclerosis of [place] coronary vessel (Chronic) 100% occluded proximal RCA. HTN (hypertension) (Chronic) Hyperlipidemia Rotator cuff arthropathy of both shoulders (Acute) Spinal stenosis of lumbar region (Chronic) s/p decompression and fusion x 3 Surgical History Fusion of spine CERVICAL AND LUMBAR FUSION (TOTAL 3 BACK SURGERIES) H/O lateral meniscus repair of right knee (Acute) History of AAA (abdominal aortic aneurysm) repair History of cardiac cath Indicated after + stress test in 2003. 100% occlusion of RCA with good collateral flow from L to R collaterals; 30% proximal and mid LAD stenosis, n o significant disease in Cx. History of cataract surgery RT/LEFT History of colonoscopy History of tooth extraction Hx of tonsillectomy Social History Smoking Status: Former smoker Age Started Using Tobacco: 14; packs per day: 2; Second Hand Exposure: No; Hx Alcohol Use: Yes Alcohol type: beer, wine and hard liquor Hx Substance Use: No Preferred Language: Romanian Communication Ability: Effective Visual Impairment: Partially Limited Hearing Ability: Normal Refinery Operator Vapor Recovery Unit Required: No Beliefs That Will Affect Care: None marital status: Current Living Situation: Spouse current occupational status: retired 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 Feels Safe at Home: Yes Safety Concerns: Feels Safe At This Time Childhood Exposure to Second-Hand Smoke: Yes caffeine: Yes Dental Care, Regularly: No Physical Activity Frequency: 3-4 Times per Week Seatbelt Use: always Sunscreen Use: No Physical Exam Physical Exam: Gen.: No acute distress. Alert and oriented. HEENT: Anicteric sclera. Neck: No JVD. No bruits. Normal carotid upstrokes bilaterally. Cardiac: PMI was nonpalpable. No ventricular heave. Regular rate and rhythm. Normal S1-S2. No murmurs, rubs, or gallops. Pulmonary: Clear to auscultation bilaterally without wheezes, rales, or rhonchi. Abdomen: Soft, nontender, nondistended, with normoactive bowel sounds. No bruits noted. Extremities: 1+ right radial pulse. 2+ left radial pulse. 2+ Dorsalis pedis pulses bilaterally. No significant edema or cyanosis. Psychiatric: Affect appears appropriate. Chest: Nontender to palpation. Results & Data ([facility]) Vital Signs (Past 12 Hours) Vital Signs Temp Pulse Pulse Resp BP Pulse Ox 05/14/20 03:24 36.9 C 55 L 16 135/75 93 05/14/20 00:06 36.9 C 56 L 16 132/84 95 05/13/20 23:49 66 Laboratory Results Laboratory Results - last 24 hr 05/13/20 05/13/20 05/13/20 13:00 13:00 13:00 WBC 6.79 RBC 4.86 Hgb 15.1 Hct 43.4 MCV 89.3 MCH 31.1 MCHC 34.8 RDW Std Deviation 45.0 RDW Coeff of Malik 13.7 Plt Count 140 MPV 11.1 H Immature Gran % (Auto) 0.1 Neut % (Auto) 74.7 Lymph % (Auto) 18.7 Whitman % (Auto) 5.3 Eos % (Auto) 0.9 Baso % (Auto) 0.3 Neut # (Auto) 5.07 Lymph # (Auto) 1.27 Whitman # (Auto) 0.36 Eos # (Auto) 0.06 Baso # (Auto) 0.02 Immature Gran # (Auto) 0.01 ESR PT 10.7 INR 1.0 APTT 31.7 H PTT Ratio 1.1 Sodium 135 L Potassium 3.1 L Chloride 100 Carbon Dioxide 28 Anion Gap 8.0 BUN 14 Creatinine 1.37 Est Cr Clr Drug Dosing 56.0 Est GFR ( Amer) 59.3 Est GFR (Non-Af Amer) 51.2 BUN/Creatinine Ratio 9.9 L Glucose 156 H Calcium 9.1 Magnesium Total Bilirubin 1.2 H AST 20 ALT 22 Alkaline Phosphatase 86 Troponin I 2.080 H* Total Protein 6.9 Albumin 3.5 Globulin 3.4 Albumin/Globulin Ratio 1.0 Lipase 58 L Lyme Disease IgG Ab Lyme Disease IgM Ab 05/13/20 05/14/20 05/14/20 20:08 01:37 02:57 WBC RBC Hgb Hct MCV MCH MCHC RDW Std Deviation RDW Coeff of Malik Plt Count MPV Immature Gran % (Auto) Neut % (Auto) Lymph % (Auto) Whitman % (Auto) Eos % (Auto) Baso % (Auto) Neut # (Auto) Lymph # (Auto) Whitman # (Auto) Eos # (Auto) Baso # (Auto) Immature Gran # (Auto) ESR 14 PT INR APTT 90.5 H* PTT Ratio 3.2 Sodium Potassium Chloride Carbon Dioxide Anion Gap BUN Creatinine Est Cr Clr Drug Dosing Est GFR ( Amer) Est GFR (Non-Af Amer) BUN/Creatinine Ratio Glucose Calcium Magnesium 2.1 Total Bilirubin AST ALT Alkaline Phosphatase Troponin I 2.370 H* Total Protein Albumin Globulin Albumin/Globulin Ratio Lipase Lyme Disease IgG Ab Lyme Disease IgM Ab 05/14/20 05/14/20 02:57 02:57 WBC RBC Hgb Hct MCV MCH MCHC RDW Std Deviation RDW Coeff of Malik Plt Count MPV Immature Gran % (Auto) Neut % (Auto) Lymph % (Auto) Whitman % (Auto) Eos % (Auto) Baso % (Auto) Neut # (Auto) Lymph # (Auto) Whitman # (Auto) Eos # (Auto) Baso # (Auto) Immature Gran # (Auto) ESR PT INR APTT PTT Ratio Sodium 142 D Potassium 3.4 L Chloride 106 Carbon Dioxide 32 Anion Gap 4.0 BUN 14 Creatinine 1.28 Est Cr Clr Drug Dosing 60.0 Est GFR ( Amer) 64.4 Est GFR (Non-Af Amer) 55.5 BUN/Creatinine Ratio 10.7 Glucose 96 Calcium 8.1 L Magnesium 2.1 Total Bilirubin AST ALT Alkaline Phosphatase Troponin I 2.740 H* Total Protein Albumin Globulin Albumin/Globulin Ratio Lipase Lyme Disease IgG Ab Negative Lyme Disease IgM Ab Negative Diagnostic Findings Telemetry personally reviewed: Sinus rhythm with PVCs. No arrhythmia. ECGs personally reviewed: ECG 05/13/2020 at 12:59 PM: Sinus rhythm with PVCs. IVCD. Inferior infarct. Nonspecific ST/T wave abnormality. ECG 05/14/2020 at 4:33 AM: Sinus rhythm with PVCs 72 bpm. Possible inferior infarct. Anterolateral T wave inversion more prominent compared to 05/13/2020 ECG. Chest x-ray 05/13/2020: No active disease within the chest per radiology. Chest CTA 05/13/2020: No acute intrathoracic findings per radiology. No acute PE. No thoracic aortic aneurysm or dissection. Medications Administered Current Inpatient Medications Acetaminophen (Tylenol) 650 mg PO Q4H PRN PRN Reason: Pain or Fever Stop: 06/12/20 19:22 Al Hydrox/Mg Hydrox/Simethicone (Maalox) 15 ml PO Q4H PRN PRN Reason: Dyspepsia Stop: 06/12/20 19:22 Aspirin ([facility]rin [facility]ab) [facility] Stop: 06/13/20 08:59 Atenolol (Tenormin) 50 mg PO [facility] Stop: 06/13/20 08:59 Atorvastatin Calcium (Lipitor) 30 mg PO [facility] Stop: 06/13/20 08:59 Fish Oil ([place]-3 (Purified Fish Oil)) 1 gm PO [facility] Stop: 06/13/20 08:59 Heparin Sodium/Dextrose (Heparin Sodium/Dextrose) 25,000 units in 500 mls @ 29 mls/hr IV .[id number] [facility]; Protocol Stop: 06/12/20 15:59 Last Titration: 05/14/20 07:11 Dose: 1,300 units/hr, 26 mls/hr Documented by: Morphine Sulfate (Morphine Sulfate) 2 mg IV Q30M PRN PRN Reason: Chest Pain Stop: 05/27/20 19:22 Nitroglycerin (Nitrostat) 0.4 mg SL UD PRN PRN Reason: Chest Pain Stop: 06/12/20 19:22 Ondansetron HCl (Zofran) 4 mg IV Q6H PRN PRN Reason: Nausea Stop: 06/12/20 19:22 Oxycodone/Acetaminophen (Percocet 5mg/325mg) 2 tab PO Q4H PRN PRN Reason: pain Stop: 05/27/20 19:22 PG Care Time/CCT Total # of Minutes Spent Total Time Spent with Patient: Total time spent is greater than 50% in coordination of care (as documented) at patient's floor/unit and/or counseling patient: Coding Level of Care Code 52685 Initial Inpt Care Lvl 3 Diagnoses Non-ST elevation (NSTEMI) myocardial infarction I21.4 HTN (hypertension) I10 Hypertension type: essential hypertension Hyperlipidemia E78.00; E78.0 Hyperlipidemia type: pure hypercholesterolemia CAD (coronary artery disease) I25.10 (1) Hyperlipidemia Hyperlipidemia type: pure hypercholesterolemia Qualified Code(s): E78.00 - Pure hypercholesterolemia, unspecified; E78.0 - Pure hypercholesterolemia (2) HTN (hypertension) Hypertension type: essential hypertension Qualified Code(s): I10 - Essential (primary) hypertension
[2020-05-14] MEDS ORDERED: ATENOLOL 50 MG TABLET PO SCH (09:00)
[2020-05-14] MEDS ORDERED: ATORVASTATIN 10 MG TAB PO SCH (09:00)
[2020-05-14] MEDS: POTASSIUM CHLORIDE 20 MEQ TABCR PO SCH (09:33)
[2020-05-14 10:08] LABS: Partial Thromboplastin Ratio 2.7
[2020-05-14 10:12] LABS: Partial Thromboplastin Time 76.6 Seconds (21.0-31.0)
--- NOTE | 2020-05-14 10:26 | XCELERA ---
[id number]
[2020-05-14] MEDS: HEPARIN SODIUM/DEXTROSE 25,000 UNITS/500 ML BAG IV SCH (10:28)
--- NOTE | 2020-05-14 10:29 | Pre Anesthesia Assessment ---
Date of Service May 14, 2020 Pre Sedation Assessment Vital Signs Temp Pulse Pulse Resp BP BP BP 05/14/20 09:35 60 135/84 05/14/20 08:21 36.6 C 58 L 20 154/79 H 05/14/20 03:24 36.9 C 55 L 16 135/75 05/14/20 00:06 36.9 C 56 L 16 132/84 05/13/20 23:49 66 05/13/20 19:16 36.3 C L 18 169/88 H 05/13/20 19:00 45 L 14 05/13/20 18:31 61 18 05/13/20 18:30 52 L 14 150/107 H 05/13/20 18:00 65 14 165/107 H 05/13/20 17:31 61 21 170/102 H 05/13/20 17:30 56 L 17 05/13/20 17:01 34 L 17 133/93 05/13/20 17:00 42 L 17 05/13/20 16:32 57 L 19 05/13/20 16:31 57 L 21 157/92 H 05/13/20 16:01 52 L 15 05/13/20 16:00 43 L 9 L 159/91 H 05/13/20 15:30 53 L 15 141/87 H 05/13/20 14:30 60 19 106/62 05/13/20 14:00 61 17 114/59 L 05/13/20 13:30 63 12 126/72 05/13/20 13:16 65 16 05/13/20 13:05 64 15 133/70 05/13/20 12:51 36.6 C 65 16 128/67 Pulse Ox 05/14/20 09:35 05/14/20 08:21 94 05/14/20 03:24 93 05/14/20 00:06 95 05/13/20 23:49 05/13/20 19:16 96 05/13/20 19:00 05/13/20 18:31 92 05/13/20 18:30 96 05/13/20 18:00 93 05/13/20 17:31 95 05/13/20 17:30 05/13/20 17:01 95 05/13/20 17:00 05/13/20 16:32 96 05/13/20 16:31 94 05/13/20 16:01 97 05/13/20 16:00 96 05/13/20 15:30 96 05/13/20 14:30 94 05/13/20 14:00 93 05/13/20 13:30 95 05/13/20 13:16 96 05/13/20 13:05 95 05/13/20 12:51 96 Cardiovascular RRR, no murmur, no edema Respiratory normal respiratory effort, lungs clear to auscultation Pre-Sedation Airway Assessment Smoking Status: Former smoker Mallampati Class: III ASA: ASA3 NPO Status Date of Last Intake of Fluids: 05/13/20 Time of Last Intake of Fluids: 20:00 Date of Last Intake of Solid Food: 05/13/20 Time of Last Intake of Solid Foods: 20:00 Procedure Planning Contraindications for Sedation: none Current Medications Reviewed: Yes Notes The planned sedation has been discussed with the patient. Informed Consent was obtained. I have identified the patient, determined the appropriateness of sedation and have assessed the patient immediately prior to the procedure. All medicine(s) and interventions are by my order.
[2020-05-14] MEDS ORDERED: NiCARDipine HCL INJ 2.5 MG/ML 10 ML AMP ONE (10:59)
[2020-05-14] MEDS ORDERED: NITROGLYCERIN/D5W 100MCG/ML 20ML SYR ONE (10:59)
[2020-05-14] MEDS ORDERED: HEPARIN (PORCINE) 1000 UNIT/ML 10 ML (CATH LAB USE ONLY) ONE ×2 (10:59→12:35)
[2020-05-14] MEDS ORDERED: MIDAZOLAM HCL 1 MG/ML 2ML VIAL ONE ×2 (10:59→11:39)
[2020-05-14] MEDS: fentaNYL citrate 100 MCG/2 ML VIAL ONE ×2 (11:20→12:27)
--- NOTE | 2020-05-14 12:23 | Cardiac Catheterization ---
[facility] Data: Breaker Up Machine Operator Cardiac Status Clinical evaluation leading to the procedure CAD Presenation: Non STEMI Anginal Classification: CCS IV Heart Failure: No Cardiogenic Shock within 24 Hours: No Cardiac Arrest within 24 Hours: No Imaging Studies Past 6 Months: Yes Stress Studies Past 6 Months: Yes Standard Exercise Test: Yes - Negative Stress Echocardiogram: Yes - Negative Coronary Anatomy Dominant: Right Left Ventricular Angiography EF (%): n/a Diagnostic Physicians Name: Gildardo Bhakta MD Status: Elective Closure Device Percutaneous Entry Location: Radial Closure Device: Radial Band Recommendations: PCI without planned CABG Cardiac Cath Procedure Full Procedure Date May 14, 2020 Pre-Procedure Diagnosis Pre-Procedure Diagnosis: Non STEMI AUC Score AUC Score: 9 Post-Procedure Diagnosis Post-Procedure Diagnosis: Severe CAD and Elevated Intracardiac Pressures Procedure(s) Performed Procedure(s) Performed: Coronary Angiography and Left Heart Cath Director Career Gildardo Bhakta MD Rehab Assistant(s) Wendy Ochoa Estimated Blood Loss Estimated Blood Loss: < 30 ml Medication(s) Medication(s): Fentanyl, Heparin, Lidocaine 1%, Nicardipine and Versed Summary of Findings Procedures: 1. Coronary angiography 2. Left heart catheterization 3. Moderate sedation Coronary angiography: 1. Left main coronary artery: LMCA is large in caliber. No significant CAD. 2. Left anterior descending: The LAD is a very large caliber vessel that extends to the apex. The midportion of the LAD appears aneurysmal. Proximal LAD 20 to 30%. Early mid LAD 30 to 50%. Mid LAD 30%. Large caliber D1. Proximal D1 30%. Early mid diagonal 90% followed by 40% stenosis. Small D2. Large D3 without significant CAD. 3. Circumflex: The circumflex is a large-caliber vessel. Large caliber high OM1. Small OM 2. No significant CAD within the circumflex system. 4. Right coronary artery: The RCA is large and dominant. Proximal RCA 100%. Right to right and left to right collaterals. Left heart catheterization: 1. Left ventriculography was not performed. 2. Moderately elevated LVEDP; 22 mmHg. 3. No aortic stenosis. Moderate sedation: 1. Sedation start time: 11:17 AM 2. Sedation end time: 11:58 AM Procedural details: 1. Previous cardiac catheterization in 2003 was performed via the right radial artery. The right radial artery was cannulated but wire was unable to be advanced. Angiography was performed demonstrating atretic right radial artery with extravasation of contrast at the access site. The procedure was then performed via the left radial artery without known complication. Impression: 1. Severe CAD involving large D1. 2. Previously documented occluded proximal RCA with right to right and left to right collaterals. 3. Otherwise, mild and moderate nonobstructive CAD. 4. Moderately elevated left-sided filling pressure. 5. No significant aortic stenosis. Plan: 1. Images were reviewed with Dr. Salinas of interventional cardiology who plans to perform PCI of D1. 2. Continue risk factor modification. Hemodynamics Rest Ao:: 119/62 Final Ao: 122/69 LV: 117/05/25 Recommendations Recommendations: PCI without planned CABG Specimens Specimens: None Radiation Exposure (mGy) 1049 mGy. Fluoro time 5.5 min. Contrast (mls) 70 ml Procedural Complication(s) None Disposition PCU (after PCI) I attest to the content of the Intraoperative Record and any orders documented therein. Any exceptions are noted below. [facility] Card Cath Procedure Codes Cardiac Catheterization Procedure 1: Cardiovascular Cath Procedures: 77538 Coronaries and LHC (+/-LV) Moderate Sedation Procedure 1: Sedation/Anesthesia: 59168 Mod Sedation by the same physician;Init15 Min Child Age 5 & Up Procedure 2: Sedation/Anesthesia: 02986 Mod Sedation by the same physician; Ea [id number] Minutes PG Care Time/CCT Total # of Minutes Spent Total Time Spent with Patient: Total time spent is greater than 50% in coordination of care (as documented) at patient's floor/unit and/or counseling patient:
[2020-05-14] MEDS ORDERED: fentaNYL citrate 100 MCG/2 ML VIAL ONE (12:46)
[2020-05-14] MEDS ORDERED: TICAGRELOR 90 MG TAB PO ONE (13:01)
--- NOTE | 2020-05-14 13:15 | Post Anesthesia Assessment ---
Date of Service May 14, 2020 Post Sedation Assessment Vital Signs Temp Pulse Pulse Pulse Resp BP BP 05/14/20 10:38 55 L 14 152/89 H 05/14/20 09:35 60 05/14/20 08:21 97.9 F 58 L 20 154/79 H 05/14/20 03:24 98.4 F 55 L 16 135/75 05/14/20 00:06 98.4 F 56 L 16 132/84 05/13/20 23:49 66 05/13/20 19:16 97.3 F L 18 169/88 H 05/13/20 19:00 45 L 14 05/13/20 18:31 61 18 05/13/20 18:30 52 L 14 150/107 H 05/13/20 18:00 65 14 165/107 H 05/13/20 17:31 61 21 170/102 H 05/13/20 17:30 56 L 17 05/13/20 17:01 34 L 17 133/93 05/13/20 17:00 42 L 17 05/13/20 16:32 57 L 19 05/13/20 16:31 57 L 21 157/92 H 05/13/20 16:01 52 L 15 05/13/20 16:00 43 L 9 L 159/91 H 05/13/20 15:30 53 L 15 141/87 H 05/13/20 14:30 60 19 106/62 05/13/20 14:00 61 17 114/59 L 05/13/20 13:30 63 12 126/72 05/13/20 13:16 65 16 BP Pulse Ox 05/14/20 10:38 97 05/14/20 09:35 135/84 05/14/20 08:21 94 05/14/20 03:24 93 05/14/20 00:06 95 05/13/20 23:49 05/13/20 19:16 96 05/13/20 19:00 05/13/20 18:31 92 05/13/20 18:30 96 05/13/20 18:00 93 05/13/20 17:31 95 05/13/20 17:30 05/13/20 17:01 95 05/13/20 17:00 05/13/20 16:32 96 05/13/20 16:31 94 05/13/20 16:01 97 05/13/20 16:00 96 05/13/20 15:30 96 05/13/20 14:30 94 05/13/20 14:00 93 05/13/20 13:30 95 05/13/20 13:16 96 Recovery Score Activity: Moves 4 extremities Respiration: Deep Breath/Cough Circulation: +/-20% PreAnes Value Consciousness: Fully Awake Oxygen Saturation: O2 needed for >90% Discharge Sedation Level of Care: Fast Track Phase II Post Sedation Plan On clinical assessment, the patient appears to have tolerated the sedation without complications. Patient is recovering as anticipated. Patient will continue to be monitored by nursing and may be discharged when sedation discharge criteria are met per below protocol. Upon Completions of procedure up to 15 minutes continue every 5 minute vital signs and the P.A.R. score; then discharge to a Phase I or Fast Track to Phase II per the following guidelines: * Discharge Patient to appropriate Phase II area if PAR is 8 or greater or return to pre- procedure baseline. The post - procedure orders will be as directed. * If PAR score is less than 8 or not return to pre-procedure baseline then patient will follow Phase I monitoring till PAR is reached for Phase II. The Phase I may be done in procedure room or may call to secure a Phase I area. * If naloxone or flumazenil are used for reversal, hold in Phase I for continued monitoring from when last reversal dose was given for a minimum of 60 minutes or longer pending the nurse and/or physician discretion of patient condition before discharge to Phase II. Please call the Sedation Physician to re-evaluate and complete post-note for discharge to Phase II area. Do NOT discharge from procedure sedation or Phase 1 until post- sedation evaluation note is complete by procedure /sedation MD Sedation Discharge Instructions to be given to the patient at discharge to home.
--- NOTE | 2020-05-14 13:21 | Cardiac Catheterization ---
[facility] Data: Purification Director Cardiac Status Clinical evaluation leading to the procedure CAD Presenation: Non STEMI Anginal Classification: CCS III Heart Failure: No Cardiogenic Shock within 24 Hours: No Cardiac Arrest within 24 Hours: No Imaging Studies Past 6 Months: Yes Stress Studies Past 6 Months: No Diagnostic Physicians Name: Lonny Salinas MD Status: Elective Closure Device Percutaneous Entry Location: Radial Closure Device: Radial Band Recommendations: PCI without planned CABG PCI Indication: PCI for high risk Non-MONTEZ Lesion Segment Name: Second diagonal Culprit Artery: Yes Stenosis Prior to Rx (%): 95 Chronic Total Occlusion: No IVUS: No FFR: No Pre-Procedure HAVEN Flow: 3 Previously Treated Lesion: No Lesion Complexity: Non-High/Non-C Lesion Length (mm): 15 Thrombus Present: Yes Bifurcation Lesion: No Guidewire Across Lesion: Stenosis Post-Procedure (%): 0 Post-Procedure HAVEN Flow: 3 Devices(s) Deployed: Yes Yes Intraprocedure Events Significant Disection: No Perforation: No Cardiac Cath Procedure Full Procedure Date May 14, 2020 Pre-Procedure Diagnosis Pre-Procedure Diagnosis: Non STEMI AUC Score AUC Score: 8 Post-Procedure Diagnosis Post-Procedure Diagnosis: Severe CAD and Successful PCI Procedure(s) Performed Procedure(s) Performed: Drug Eluting Stent Vice President Business Development Lonny Salinas MD Hotel Office Manager(s) Wendy Ochoa Estimated Blood Loss Estimated Blood Loss: < 30 ml Medication(s) Medication(s): Fentanyl, Heparin, Nicardipine, Nitroglycerin and Versed Medication(s): Ticagrelor Summary of Findings Indication: High risk NSTEMI Access: 6 Fr left radial artery Catheters: EBU 3.5 guide Findings: For full details of patient's coronary angiography please see cath report dic tated by Dr. Bhakta. Briefly, patient found to have a chronically occluded RCA and an acute 95+ percent stenosis involving proximal to mid second diagonal. Decision to proceed with PCI of diagonal. -- PCI -- Antithrombotic therapy: Heparin, ticagrelor Procedure: Left main cannulated with EBU 3.5 guide Hoop Flaring Machine Operator Helper 50 wire passed across lesion into distal vessel Diagonal lesion predilated with 2.5 compliant balloon Dilated lesion stented with 2.5 x 18 mm [place] drug-eluting stent Stent post-dilated with 2.75 noncompliant balloon IC vasodilators administered for spasm Post procedure HAVEN 3 flow, stent well expanded with minimal residual stenosis and no apparent cardiac complications. Arterial Closure: TR band Summary: 1. Successful PCI of proximal to mid second diagonal with single drug-eluting stent (2.5 x 18 mm [place]; postdilated with 2.75 NC). Recommendations: To PCU for continued monitoring Loaded with ticagrelor 180 mg in Purification Director Continue dual-antiplatelet therapy for at least 1 year Continue statin, and ASCVD risk factor modification Consult cardiac Rehab Hemodynamics Rest Ao:: 119/64/83 Final Ao: 127/72/92 LV: 117/17 Recommendations Recommendations: PCI without planned CABG Specimens Specimens: None Radiation Exposure (mGy) 3357 Contrast (mls) 150 Fluids (cc crystalloids) Fluids (cc crystalloids): 212 Drains Drains: None Anesthesia Moderate Procedural Complication(s) None Disposition PCU (after PCI) I attest to the content of the Intraoperative Record and any orders documented therein. Any exceptions are noted below. [facility] Card Cath Procedure Codes Moderate Sedation Procedure 1: Sedation/Anesthesia: 94626 Mod Sedation by the same physician; Ea [id number] Minutes Stenting Procedure 1: Cardiovascular Stent Procedures: 84988 Perc transcatheter placement of intracoronary stent(s), with ang PG Care Time/CCT Total # of Minutes Spent Total Time Spent with Patient: Total time spent is greater than 50% in coordination of care (as documented) at patient's floor/unit and/or counseling patient:
[2020-05-14] MEDS ORDERED: SODIUM CHLORIDE 0.9% 1000ML 1,000 ML IV SCH (13:30)
[2020-05-14] MEDS: ASPIRIN 81 MG ECTAB PO SCH (13:46)
[2020-05-14] MEDS: OMEGA-3 (PURIFIED FISH OIL) 1 GM CAP PO SCH (13:46)
--- NOTE | 2020-05-14 18:09 | Hospitalist Progress Note ---
Date of Service May 14, 2020 Assessment & Plan (1) CAD (coronary artery disease): atypical chest pain, elevated troponin,non specific ECG changes, Left heart cath on 05/14 with successful PCI of the proximal to mid second diagonal with a single drug-eluting stent patient is recovering well post procedure there is a description of positional nature of pain, worse in recumbent position, negative Lyme and significant ESR elevation Will change atenolol to metoprolol with further discussion with cardiology regarding long-term beta-mirian choice Given reduction in ejection fraction will initiate statin therapy on 05/15 if creatinine does not bump after procedure and dye load (2) Hyperlipidemia: Change to 40 mg dose for treatment of NSTEMI (3) Benign prostatic hyperplasia: Pt has frequent nocturnal urination and dribbling urine, does not want medicine at this point will need urology eval as outpt (4) HTN (hypertension): Which to metoprolol and lisinopril on 05/15 (5) Lumbar stenosis with neurogenic claudication: pt only using tylenol as needed (6) Hypokalemia: replete (7) DVT prophylaxis: Heparin drip discontinued is on aspirin and Brilinta Admission and Anticipated Discharge Date Admission Date: May 13, 2020 Subjective pt is stable post procedure, he has no complaints but minor chest discomfort, did have diagnoal artery stenting Review of Systems Review of Systems: Mild distress and fatigue no headache, blurry or double vision no speech or swallowing issues mild chest pain,no c/o pressure or palpitations no shortness of breath, cough or wheezes no abdominal pain, nausea or vomiting, diarrhea or constipation no dysuria, hematuria or frequency no focal joint pain or swelling no back pain, CVA tenderness or radicular pain no bruising, bleeding or rashes no focal signs of weakness or numbness or altered sensation no complaints or anxiety or depression. Physical Exam Physical Exam: The patient appeared well nourished and normally developed. Vital signs as documented. Head exam is normocephalic atraumatic no scleral icterus Neck is without JVD, thyromegaly, or carotid bruits. Lungs are clear to auscultation, no focal loss of breath sounds Cardiac exam, Rhythm is regular.. No murmurs, rubs or gallops. Abdominal exam reveals normal bowel sounds, soft non tender, no masses Extremities are nonedematous and both pedal pulses are normal. Neurologic exam is alert and oriented, no focal loss of strength or sensation Skin is without bruises or rashes Psychologically is without concerns for anxiety or depression Results & Data Results & Data ([facility]) Vital Signs (Past 12 Hours) Vital Signs Temp Pulse Pulse Pulse Resp BP BP 05/14/20 16:00 63 05/14/20 15:10 62 20 127/80 05/14/20 14:40 63 20 151/95 H 05/14/20 14:35 73 20 140/101 H 05/14/20 14:10 68 20 135/87 05/14/20 13:55 65 18 156/86 H 05/14/20 13:40 61 20 157/83 H 05/14/20 13:21 97.7 F 67 18 145/94 H 05/14/20 10:38 55 L 14 152/89 H 05/14/20 09:35 60 135/84 05/14/20 08:21 97.9 F 58 L 20 154/79 H Pulse Ox 05/14/20 16:00 05/14/20 15:10 94 05/14/20 14:40 95 05/14/20 14:35 95 05/14/20 14:10 95 05/14/20 13:55 94 05/14/20 13:40 95 05/14/20 13:21 91 05/14/20 10:38 97 05/14/20 09:35 05/14/20 08:21 94 PG Care Time/CCT Total # of Minutes Spent Total Time Spent with Patient: Total time spent is greater than 50% in coordination of care (as documented) at patient's floor/unit and/or counseling patient: Coding Level of Care Code 55319 Subseq Hosp Care Lvl 3 Diagnoses CAD (coronary artery disease) I25.10 Hyperlipidemia E78.00; E78.0 Hyperlipidemia type: pure hypercholesterolemia Benign prostatic hyperplasia N40.0 HTN (hypertension) I10 Hypertension type: essential hypertension Lumbar stenosis with neurogenic claudication M48.062 Hypokalemia E87.6 DVT prophylaxis Z29.9 (1) Hyperlipidemia Hyperlipidemia type: pure hypercholesterolemia Qualified Code(s): E78.00 - Pure hypercholesterolemia, unspecified; E78.0 - Pure hypercholesterolemia (2) HTN (hypertension) Hypertension type: essential hypertension Qualified Code(s): I10 - Essential (primary) hypertension
[2020-05-14] MEDS: TICAGRELOR 90 MG TAB PO SCH (22:15)
[2020-05-15 07:22] LABS: Hematocrit (blood only) 45.2 % (42-52); Hemoglobin 15.3 g/dL (14.0-18.0); Mean Corpuscular Hemoglobin 30.5 pg (25-34); Mean Corpuscular Hgb Conc 33.8 g/dL (32-36); Mean Corpuscular Volume 90.2 fL (80-100); Mean Platelet Volume 10.6 fL (7.4-10.4); Platelet Count 135 K/uL (130-400); RDW Coefficient of Variation 13.9 % (11.5-14.5); RDW Standard Deviation 45.5 fL (36.4-46.3); Red Blood Count 5.01 M/uL (4.7-6.1); White Blood Count 7.79 K/uL (4.8-10.8)
[2020-05-15 07:45] LABS: BUN Creatinine Ratio 9.4 (10-20); Calcium 8.9 mg/dl (8.5-10.1); Creatinine Clr Calc Pharmacy 59.9 ml/min; Est GFR (Non-African American) 56.1; Potassium 3.5 mmol/L (3.5-5.1)
[2020-05-15] MEDS: TICAGRELOR 90 MG TAB PO SCH (07:48)
[2020-05-15] MEDS: ASPIRIN 81 MG ECTAB PO SCH (07:49)
[2020-05-15] MEDS: OMEGA-3 (PURIFIED FISH OIL) 1 GM CAP PO SCH (07:49)
[2020-05-15 08:22] VITALS: TEMP 97.9; O2SAT 94
[2020-05-15] MEDS ORDERED: METOPROLOL TARTRATE 25 MG TAB PO SCH (09:00)
[2020-05-15] MEDS ORDERED: ATORVASTATIN 40 MG TAB PO SCH (09:00)
[2020-05-15] MEDS ORDERED: lisinopriL 5 MG TAB PO SCH (09:00)
[2020-05-15 11:32] VITALS: BP 150/90; PULSE 61
--- NOTE | 2020-05-15 11:47 | Cardiology Progress Note ---
Date of Service May 15, 2020 Assessment & Plan (1) Non-ST elevation (NSTEMI) myocardial infarction: (2) HTN (hypertension): (3) Hyperlipidemia: (4) CAD (coronary artery disease): ASSESSMENT/PLAN: 1. NSTEMI: Presented with rest angina and elevated troponins. Underwent PCI of diagonal vessel. No further chest pain. Recommend cardiac rehabilitation on discharge. This was discussed with him and he would like to think it over. Continue dual anti-platelet therapy following PCI. Continue beta-mirian, Rock inhibitor, and statin therapy. 2. CAD s/p D2 PCI : Also has documented occluded RCA with [id number] and right to right collaterals. No further angina. Continue dual anti-platelet therapy. Continue beta-mirian, Rock inhibitor, and statin therapy. 911 for angina. 3. Ischemic cardiomyopathy: LV systolic function is reduced. Recommend metoprolol succinate in place of metoprolol tartrate. He was discharged on tartrate and this can be changed at his follow-up appointment next week. Continue ROCK-inhibitor which was initiated during the hospital stay. He appears euvolemic. Currently does not meet criteria for ICD for primary prevention. 4. Hypertension: Mostly mildly hypertensive more recently. ROCK-inhibitor initiated. 5. Dyslipidemia: LDL has been well controlled when last evaluated nearly 1 year ago. Continue high-intensity statin therapy. 6. Disposition: Was ok for discharge from a cardiology perspective, and was discharged by the time of this note. He has follow-up appointment scheduled in the cardiology office with Mr. Chavira. Patient care discussed with Dr. Juan the primary hospitalist service. Cardiac rehabilitation was recommended. Admission and Anticipated Discharge Date Admission Date: May 13, 2020 Subjective He was seen earlier this morning prior to discharge. His and daughter were present at the bedside. He denies any further chest pain, shortness of breath, syncope, near-syncope, palpitations, edema, or bleeding. He underwent PCI of D2 yesterday. Review of systems: As above. Physical Exam Physical Exam: Gen.: No acute distress. Alert and oriented. HEENT: Anicteric sclera. Neck: No JVD. Cardiac: No ventricular heave. Regular. Normal S1-S2. No murmurs, rubs, or gallops. Pulmonary: Clear to auscultation bilaterally without wheezes, rales, or rhonchi. Abdomen: Soft, nontender, nondistended, with normoactive bowel sounds. No bruits noted. Extremities: Weak right radial pulse. No hematoma. 2+ left radial pulse. Left radial catheterization site is clean, dry, and intact without erythema or discharge. No significant edema or cyanosis. Psychiatric: Affect appears appropriate. Results & Data ([facility]) Vital Signs (Past 12 Hours) Vital Signs Temp Pulse Pulse Resp BP BP Pulse Ox 05/15/20 11:29 36.6 C 61 20 150/90 H 143/85 H 94 05/15/20 08:22 36.6 C 83 20 143/85 H 94 05/15/20 07:47 36.5 C 61 16 148/80 H 96 05/15/20 03:20 36.7 C 68 16 148/80 H 95 Laboratory Results Laboratory Results - last 24 hr 05/14/20 05/14/20 05/14/20 11:44 12:11 12:32 WBC RBC Hgb Hct MCV MCH MCHC RDW Std Deviation RDW Coeff of Malik Plt Count MPV Activ Coag Time Kaolin 147 H 164 H 219 H Sodium Potassium Chloride Carbon Dioxide Anion Gap BUN Creatinine Est Cr Clr Drug Dosing Est GFR ( Amer) Est GFR (Non-Af Amer) BUN/Creatinine Ratio Glucose Calcium 05/14/20 05/15/20 05/15/20 12:51 07:05 07:05 WBC 7.79 RBC 5.01 Hgb 15.3 Hct 45.2 MCV 90.2 MCH 30.5 MCHC 33.8 RDW Std Deviation 45.5 RDW Coeff of Malik 13.9 Plt Count 135 MPV 10.6 H Activ Coag Time Kaolin 263 H Sodium 139 Potassium 3.5 Chloride 106 Carbon Dioxide 29 Anion Gap 4.0 BUN 12 Creatinine 1.27 Est Cr Clr Drug Dosing 59.9 Est GFR ( Amer) 65.0 Est GFR (Non-Af Amer) 56.1 BUN/Creatinine Ratio 9.4 L Glucose 117 H Calcium 8.9 Diagnostic Findings Telemetry personally reviewed: Sinus rhythm with PVCs. ECG 05/15/2020: Sinus rhythm with PVCs 74 bpm. Possible inferior infarct. Ante rolateral ST /T-wave abnormality. Echo 05/14/2020: Moderately dilated LV with moderately reduced systolic function. EF 35-40%. Akinesis of the basal inferior and basal inferolateral wall segments with thinning consistent with prior [place]. Akinesis of the distal inferior wall. Hypokinesis of the mid inferior, mid to distal anterior, and anterolateral wall segments. Moderate LVH. Mild left atrial dilation. Mild MR. Normal RVSP. Cardiac catheterization 05/14/2020: Coronary angiography: 1. Left main coronary artery: LMCA is large in caliber. No significant CAD. 2. Left anterior descending: The LAD is a very large caliber vessel that extends to the apex. The midportion of the LAD appears aneurysmal. Proximal LAD 20 to 30%. Early mid LAD 30 to 50%. Mid LAD 30%. Large caliber D1. Proximal D1 30%. Early mid diagonal 90% followed by 40% stenosis. Small D2. Large D3 without significant CAD. 3. Circumflex: The circumflex is a large-caliber vessel. Large caliber high OM1. Small OM 2. No significant CAD within the circumflex system. 4. Right coronary artery: The RCA is large and dominant. Proximal RCA 100%. Right to right and left to right collaterals. Left heart catheterization: 1. Left ventriculography was not performed. 2. Moderately elevated LVEDP; 22 mmHg. 3. No aortic stenosis. PCI: Successful PCI of proximal to mid second diagonal with single drug-eluting stent (2.5 x 18 mm [place]; postdilated with 2.75 NC). Medications Administered Current Inpatient Medications Acetaminophen (Tylenol) 650 mg PO Q4H PRN PRN Reason: Pain or Fever Stop: 06/12/20 19:22 Al Hydrox/Mg Hydrox/Simethicone (Maalox) 15 ml PO Q4H PRN PRN Reason: Dyspepsia Stop: 06/12/20 19:22 Aspirin (Ecotrin Ectab) 81 mg PO [facility] Stop: 06/13/20 08:59 Last Admin: 05/15/20 07:49 Dose: 81 mg Documented by: Atorvastatin Calcium (Lipitor) 40 mg PO [facility] Stop: 06/14/20 08:59 Last Admin: 05/15/20 07:48 Dose: 40 mg Documented by: Fish Oil ([place]-3 (Purified Fish Oil)) 1 gm PO [facility] Stop: 06/13/20 08:59 Last Admin: 05/15/20 07:49 Dose: 1 gm Documented by: Lisinopril (Zestril) 5 mg PO QAM [facility] Stop: 06/14/20 08:59 Last Admin: 05/15/20 07:49 Dose: 5 mg Documented by: Metoprolol Tartrate (Lopressor) 25 mg PO BID [facility] Stop: 06/14/20 08:59 Last Admin: 05/15/20 07:49 Dose: 25 mg Documented by: Morphine Sulfate (Morphine Sulfate) 2 mg IV Q30M PRN PRN Reason: Chest Pain Stop: 05/27/20 19:22 Nitroglycerin (Nitrostat) 0.4 mg SL UD PRN PRN Reason: Chest Pain Stop: 06/12/20 19:22 Ondansetron HCl (Zofran) 4 mg IV Q6H PRN PRN Reason: Nausea Stop: 06/12/20 19:22 Oxycodone/Acetaminophen (Percocet 5mg/325mg) 2 tab PO Q4H PRN PRN Reason: pain Stop: 05/27/20 19:22 Ticagrelor (Brilinta) 90 mg PO BID [facility] Stop: 06/13/20 22:59 Last Admin: 05/15/20 07:48 Dose: 90 mg Documented by: PG Care Time/CCT Total # of Minutes Spent Total Time Spent with Patient: Total time spent is greater than 50% in coordination of care (as documented) at patient's floor/unit and/or counseling patient: Coding Level of Care Code 17284 Subseq Hosp Care Lvl 3 Diagnoses Non-ST elevation (NSTEMI) myocardial infarction I21.4 HTN (hypertension) I10 Hypertension type: essential hypertension Hyperlipidemia E78.00; E78.0 Hyperlipidemia type: pure hypercholesterolemia CAD (coronary artery disease) I25.10 (1) Hyperlipidemia Hyperlipidemia type: pure hypercholesterolemia Qualified Code(s): E78.00 - Pure hypercholesterolemia, unspecified; E78.0 - Pure hypercholesterolemia (2) HTN (hypertension) Hypertension type: essential hypertension Qualified Code(s): I10 - Essential (primary) hypertension
--- NOTE | 2020-05-15 12:50 | Medical Student Progress Note ---
Date of Service May 15, 2020 Assessment & Plan Admission and Anticipated Discharge Date Admission Date: 74 y/o M with Hx of CAD, HTN, HLD, s/p PCI on 05/14, being discharged today (1) CAD, HTN, HLD atenolol discontinued, changed to metoprolol tartrate 25mg PO BID started on atorvastatin 40mg PO QD started on lisinopril 5mg PO QD, OK to start with normal Cr @ 1.27 restart nitroglycerin 0.4mg sublingual q5m PRN (2) stent continue aspirin 81mg QD + ticagrelor 90mg BID may need to change ticagrelor to clopidogrel after approx. 2 months after samples and coupons run out (3) discharge f/u with cardio in 1wk will need to be on DPT, statin, ACEi for 6 months until evaluation by cardiology to determine need to continue post-NE cardioprotective regimen Subjective Mr. Ryan Nelson is a 74 y/o M with a Hx of CAD, HTN, HLD. s/p PCI on 05/14 for NSTEMI. Has been able to ambulate without C/P, no BELLAMY. Chest discomfort from yesterday has resolved. Does not endorse weakness of hands, no numbness/tingling. Does not endorse feeling any palpitations. Telemetry reported few runs of V.tach overnight, recurring bigem/trigem PVCs, but otherwise sinus rhythm in 60s. Has not yet had bowel movement so unable to determine whether he has had any blood in stool. Mr. Ryan Nelson is a 74 y/o M with a Hx of CAD, HTN, HLD. s/p PCI on 05/14 for NSTEMI. Has been able to ambulate without C/P, no BELLAMY. Chest discomfort from yesterday has resolved. Does not endorse weakness of hands, no numbness/tingling. Does not endorse feeling any palpitations. Telemetry reported few runs of V.tach overnight, recurring bigem/trigem PVCs, but otherwise sinus rhythm in 60s. Has not yet had bowel movement so unable to determine whether he has had any blood in stool. Review of Systems Constitutional: as per Subjective / HPI; no fever, no chills and no fatigue Physical Exam Physical Exam: const: NAD cardio: RRR, no MRG, normal s1 s2 appreciated pulm: LCA, no wheezes/rales/rhonchi MSK: warm hands, good capillary refill <2sec, 5/5 strength handgrip Results & Data ([facility]) Vital Signs (Past 12 Hours) Vital Signs Temp Pulse Pulse Resp BP BP Pulse Ox 05/15/20 11:29 36.6 C 61 20 150/90 H 143/85 H 94 05/15/20 08:22 36.6 C 83 20 143/85 H 94 05/15/20 07:47 36.5 C 61 16 148/80 H 96 05/15/20 03:20 36.7 C 68 16 148/80 H 95 Laboratory Results Laboratory Results - last 24 hr 05/14/20 05/14/20 05/14/20 11:44 12:11 12:32 WBC RBC Hgb Hct MCV MCH MCHC RDW Std Deviation RDW Coeff of Malik Plt Count MPV Activ Coag Time Kaolin 147 H 164 H 219 H Sodium Potassium Chloride Carbon Dioxide Anion Gap BUN Creatinine Est Cr Clr Drug Dosing Est GFR ( Amer) Est GFR (Non-Af Amer) BUN/Creatinine Ratio Glucose Calcium 05/14/20 05/15/20 05/15/20 12:51 07:05 07:05 WBC 7.79 RBC 5.01 Hgb 15.3 Hct 45.2 MCV 90.2 MCH 30.5 MCHC 33.8 RDW Std Deviation 45.5 RDW Coeff of Malik 13.9 Plt Count 135 MPV 10.6 H Activ Coag Time Kaolin 263 H Sodium 139 Potassium 3.5 Chloride 106 Carbon Dioxide 29 Anion Gap 4.0 BUN 12 Creatinine 1.27 Est Cr Clr Drug Dosing 59.9 Est GFR ( Amer) 65.0 Est GFR (Non-Af Amer) 56.1 BUN/Creatinine Ratio 9.4 L Glucose 117 H Calcium 8.9 Diagnostic Findings Telemetry personally reviewed: Sinus rhythm with PVCs. No arrhythmia. ECGs personally reviewed: ECG 05/13/2020 at 12:59 PM: Sinus rhythm with PVCs. IVCD. Inferior infarct. Nonspecific ST/T wave abnormality. ECG 05/14/2020 at 4:33 AM: Sinus rhythm with PVCs 72 bpm. Possible inferior infarct. Anterolateral T wave inversion more prominent compared to 05/13/2020 ECG. Chest x-ray 05/13/2020: No active disease within the chest per radiology. Chest CTA 05/13/2020: No acute intrathoracic findings per radiology. No acute PE. No thoracic aortic aneurysm or dissection. Medications Administered Current Inpatient Medications Acetaminophen (Tylenol) 650 mg PO Q4H PRN PRN Reason: Pain or Fever Stop: 06/12/20 19:22 Al Hydrox/Mg Hydrox/Simethicone (Maalox) 15 ml PO Q4H PRN PRN Reason: Dyspepsia Stop: 06/12/20 19:22 Aspirin (E[facility]rin E[facility]ab) [facility] [place] Stop: 06/13/20 08:59 Last Admin: 05/15/20 07:49 Dose: 81 mg Documented by: Atorvastatin Calcium (Lipitor) 40 mg PO [facility] Stop: 06/14/20 08:59 Last Admin: 05/15/20 07:48 Dose: 40 mg Documented by: Fish Oil ([place]-3 (Purified Fish Oil)) 1 gm PO [facility] Stop: 06/13/20 08:59 Last Admin: 05/15/20 07:49 Dose: 1 gm Documented by: Lisinopril (Zestril) 5 mg PO QAM [facility] Stop: 06/14/20 08:59 Last Admin: 05/15/20 07:49 Dose: 5 mg Documented by: Metoprolol Tartrate (Lopressor) 25 mg PO BID [facility] Stop: 06/14/20 08:59 Last Admin: 05/15/20 07:49 Dose: 25 mg Documented by: Morphine Sulfate (Morphine Sulfate) 2 mg IV Q30M PRN PRN Reason: Chest Pain Stop: 05/27/20 19:22 Nitroglycerin (Nitrostat) 0.4 mg SL UD PRN PRN Reason: Chest Pain Stop: 06/12/20 19:22 Ondansetron HCl (Zofran) 4 mg IV Q6H PRN PRN Reason: Nausea Stop: 06/12/20 19:22 Oxycodone/Acetaminophen (Percocet 5mg/325mg) 2 tab PO Q4H PRN PRN Reason: pain Stop: 05/27/20 19:22 Ticagrelor (Brilinta) 90 mg PO BID [facility] Stop: 06/13/20 22:59 Last Admin: 05/15/20 07:48 Dose: 90 mg Documented by:
--- NOTE | 2020-05-15 18:43 | Discharge Summary ---
Date of Service May 15, 2020 Admission HPI Per Admitting Provider [id number] who presents to the Emergency Room with complaints of retrosternal chest pain that has been occurring over the last week. 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 This recurred on wednesday night again at rest and the pt called his Pcp on wednesday and was referred to the ER , the symptoms are currently resolved. The patient again denies associated symptoms. The patient had tried tums for the initial event without relief. Current pain is rated as 0/10. Pt denies LOC, headache, fevers, chills, diaphoresis, visual changes, breathing difficulties, nausea, vomiting, abdominal pain, back pain, melena, hematochezia, urinary symptoms, numbness, weakness, lymphadenopathy, rash, or other complaints. This pt has minor ECG changes, and an elevated troponin on intake of 2, he is heparinized in the ER This pt had a negative stress test 12/[address] Houston office pre operatively for his endovascular repair of a AAA, but he states that he has seen Aldo Chavira in the past and wants to see him again this stay. Principal Diagnosis n stemi left heart cath, diagonal Discharge Exam The patient appeared well Vital signs as documented. Lungs are clear to auscultation and appear unlabored Cardiac exam, Rhythm is regular.. No murmurs, rubs or gallops. Abdominal exam reveals normal bowel sounds, soft non tender, no masses Extremities both wrists were accessed both sites are clean dry and intact with good distal peripheral capillary refill Neurologic exam is alert and oriented, no focal loss of strength or sensation Skin is without bruises or rashes Psychologically is without concerns for anxiety or depression Discharge Data Allergies Allergy/AdvReac Type Severity Reaction Status Date / Time diflunisal Allergy Intermediate "CRAWL OUT Verified 05/13/20 14:39 OF SKIN" Consultations 05/13/20 16:01 ED Decision to Admit Stat 05/13/20 19:23 Consult Cardiology Routine 05/14/20 13:22 Consult Cardiac Rehabilitation Routine Procedures Performed Operation Date: 05/14/20 10:30 Actual Procedures p Drug Eluting Stent SGl Vessel - Mono Salinas MD s Cineradiography w/Routine Exam - Mono Salinas MD s Cath, Left with Cors and Vent - Gildardo Bhakta MD Ordered Studies 05/13/20 14:18 CT angio chest dissec wo/w con Stat 05/14/20 10:39 CL Cath Imgs for PACS use only Stat Hospital Course (1) CAD (coronary artery disease): atypical chest pain, elevated troponin,non specific ECG changes, Left heart cath on 05/14 with successful PCI of the proximal to mid second diagonal with a single drug-eluting stent patient is recovering well post procedure Patient discharged on dual antiplatelets of aspirin and Brilinta, metoprolol lisinopril, atorvastatin. He will have outpatient follow-up with cardiology in short order negative Lyme and no significant ESR elevation Will change atenolol to metoprolol patient will likely have further discussion with cardiology regarding long-term beta-mirian choice Given reduction in ejection fraction will initiate SHANDRA inhibitor lisinopril 5, and escalate statin therapy on 05/15 to 40 mg daily (2) Hyperlipidemia: Change to 40 mg dose for treatment of NSTEMI (3) Benign prostatic hyperplasia: Pt has frequent nocturnal urination and dribbling urine, does not want medicine at this point will need urology eval as outpt (4) HTN (hypertension): Which to metoprolol and lisinopril on 05/15 we have discontinued his hydrochlorothiazide at discharge (5) Lumbar stenosis with neurogenic claudication: pt only using tylenol as needed (6) Hypokalemia: replete Total Time Total Time Spent Total Time Spent (In Minutes): It required greater than 30 minutes to prepare t his patient for discharge Discharge Plan Discharge Items Patient Disposition: Home - Self-Care Reason For Visit: CHEST PAIN Discharge Diagnosis: nstemi, with cardiac artery stent Activity: Per Instructions section Activity Comment: slowly increase activity Non-emergency contact: Primary Care Provider and Pumper Gager Apprentice Call non-emergency contact if: you have any medication questions and your symptoms worsen Follow-up/Referrals: Glen Jones MD [Primary Care Provider] - 05/20/20 10:00 am Aldo Chavira PA-C [Physician Application Support Engineer] - 05/21/20 2:00 pm (appointment is 05/21/20 at 2 pm) Diet: Heart Healthy Addtl Attending Provider Instructions: please follow up with Cardiology do not do intentionally exercise until released by cardiology Call 911 or immediately go to the Hospital Emergency Department nearest your location if you feel you have an emergent problem. ACTIVITY RECOMMENDATIONS: * Do not lift over 5 pounds until after post-operative visit. * You may travel as a passenger in a car, but do not drive yourself until permitted by the doctor. * You may climb stairs three times each day, but not if tired or feeling weak. * Wear a sling for 10 days on the arm on the side of the incision if a pacemaker was implanted. * Do not raise the arm above your head on the side of the incision if a pacemaker was implanted. SPECIAL CARE INSTRUCTIONS: PLEASE CALL THE DOCTOR IF: * You measure your temperature with a thermometer and it is over 102 degrees F. * There is unexpected redness, swelling, pain or drainage from an incision. * You have unexpected shortness of breath. * You have increasing pain not helped by your medication. * You have urgent concerns about your surgery. * You are unable to eat or drink well. * You have uncontrollable nausea, vomiting or diarrhea. * You cannot eat your food. INCISION WOUND CARE: * Cover incision with sterile 4x4 gauze and secure with tape for 5 days. * Change the 4x4 gauze daily. * Do not use ointments or creams on the surgical wound. * You may shower 5 days after surgery. Be sure to dry off the wound. * Do not take a tub bath until after you are seen in the doctor's office. * Your surgery wound can be open to air five days after surgery. * Cover groin entry site with band-aid for 48 hours. TOBACCO AND ALCOHOL: * Alcohol should not be used. * Tobacco should not be used. SKIN IRRITATION: * You may experience some redness and/or swelling in the area where radiation was administered. If any skin irritation occurs, please contact your family physician. FOLLOW-UP VISIT: DOCTOR APPOINTMENT: * Please keep your appointment with the surgeon as scheduled. * Call the surgeon's office if an appointment change is needed. ACTIVITY RECOMMENDATIONS: Excess manipulation of the wrist should be avoided for the next 24-48 hours. * No lifting over 2 pounds (approximately a 1/2 gallon of milk) with the utilized arm for 24 hours. * No strenuous activity such as bowling or tennis for 3 days. * Keep the site of the procedure covered with a bandage for 24 hours. *You may shower the day after the procedure. Do not take a tub bath or submerge the puncture site in water for the next 3 days. *Do not operate any motorized equipment for 3 days. SPECIAL CARE INSTRUCTIONS: The site may be slightly bruised and sore following your procedure. Should any of the following occur, contact the Dr. who performed your procedure. 1. Redness/inflammation, swelling, chills, or fever, or colored drainage at procedure site within 3-7 days after your procedure. 2. Coldness, discoloration, ongoing numbness, severe pain, or swelling. Expect mild tingling of hand and tenderness at the puncture site for up to three days. If this persists beyond three days, or other symptoms develop, notify the Dr. who performed your procedure. BLEEDING: If the procedure site on your wrist begins to bleed, do not panic 1. Place 1 or 2 fingers firmly just slightly above the insertion site to stop the bleeding. You may be able to feel your pulse as you hold pressure. 2. Lift your finger after 5 minutes to see if the bleeding has stopped. 3. Once the bleeding has stopped, gently wipe the wrist area clean with a bandage. * If the bleeding from your wrist does not stop after 10 minutes, or if there is a large amount of bleeding or spurting, call 911 (do not drive yourself to the hospital). SKIN IRRITATION: * You may experience some redness and/or swelling in the area where radiation was administered. If any skin irritation occurs, please contact your family physician. FOLLOW UP VISIT: Keep any scheduled doctor appointments. Pending Studies at Discharge: No Stand-Alone Forms: [facility], Smoking Cessation Medications and DC Order Prescriptions: New Brilinta 90 mg Tablet 90 mg PO BID Qty: 60 RF: 3 lisinopril [Zestril] 5 mg Tablet 5 mg PO QAM Qty: 30 RF: 0 metoprolol tartrate 25 mg Tablet 25 mg PO BID Qty: 60 RF: 3 Continued omega-3 fatty acids 1,000 mg capsule 1,000 mg PO QAM RF: 0 nitroglycerin 0.4 mg tablet, sublingual 0.4 mg SL Q5M PRN (Reason: chest pain) Qty: 25 RF: 0 aspirin 81 mg Tablet,Delayed Release (Dr/Ec) 81 mg PO QAM RF: 0 Changed atorvastatin 20 mg tablet 40 mg PO QAM Qty: 60 RF: 4 Discontinued triamterene-hydrochlorothiazid [Dyazide] 37.5-25 mg capsule 1 cap PO QAM RF: 0 atenolol 50 mg tablet 50 mg PO QAM RF: 0 oxycodone-acetaminophen [Percocet] 5-325 mg Tablet 1 - 2 tab PO Q4H PRN (Reason: pain) Qty: 10 RF: 0 Discharge Orders: Discharge Order (Routine); Ordered 05/15/20 Ordered By: Amandeep Altamirano/Other Patient Handouts: Symptoms of a Heart Attack, Coronary Stents, Coronary Angioplasty Stenting Dc, Cardiac Catheterization Dc Admission Data Admit Date/Time: 05/13/20 16:27 Attending Provider: Amandeep Juan Admit Provider: Amandeep Juan Primary Care Provider: Glen Jones Other Providers: Amandeep Juan ; Aldo Chavira Other Interventions: Discharge Summary Assessment (RN) Last Done: 05/15/20 11:29 Coding Level of Care Code D/C Day Management >30 mins Diagnoses CAD (coronary artery disease) I25.10 Hyperlipidemia E78.00; E78.0 Hyperlipidemia type: pure hypercholesterolemia Benign prostatic hyperplasia N40.0 HTN (hypertension) I10 Hypertension type: essential hypertension Lumbar stenosis with neurogenic claudication M48.062 Hypokalemia E87.6
--- NOTE | 2020-05-15 23:36 | Electrocardiogram Report ---
Test Reason : Blood Pressure : / mmHG Vent. Rate : 072 BPM Atrial Rate : 072 BPM P-R Int : 206 ms QRS Dur : 122 ms QT Int : 458 ms P-R-T Axes : 059 044 152 degrees QTc Int : 501 ms Sinus rhythm with Premature ventricular complexes Cannot rule out Inferior infarct Non-specific intra-ventricular conduction block Abnormal ECG When compared with ECG of 13-MAY-2020 12:59, No significant change Confirmed by Gildardo Bhakta ([id number]) on 05/15/2020 11:36:23 PM Referred By: Glen Jones Confirmed By:Gildardo Bhakta
--- NOTE | 2020-05-16 06:15 | Electrocardiogram Report ---
Test Reason : Blood Pressure : / mmHG Vent. Rate : 074 BPM Atrial Rate : 057 BPM P-R Int : 206 ms QRS Dur : 124 ms QT Int : 450 ms P-R-T Axes : 031 033 191 degrees QTc Int : 499 ms Sinus bradycardia with sinus arrhythmia with frequent Premature ventricular complexes Possible Inferior infarct (cited on or before 26-MAY-2004) Non-specific intra-ventricular conduction block Abnormal ECG When compared with ECG of 14-MAY-2020 04:33, No significant change Confirmed by Gildardo Bhakta ([id number]) on 05/16/2020 6:14:54 AM Referred By: Glen Jones Confirmed By:Gildardo Bhakta
== END 2020-05-15 12:27 | disposition home or self-care (01) | DRG 247 ==
LOC: ED 12:46 → 2S 16:27